=== PATIENT | female | born 1955 | race Caucasian/White ===

== ENCOUNTER 2020-07-21 11:00 | Outpatient (REF) | payer OTHER, SELFPAY ==
--- NOTE | 2020-07-21 11:05 | MM_ITS ---
EXAMINATION: MM SCREENING DIGITAL BREAST TOMOSYNTHESIS, BILATERAL CLINICAL INFORMATION: Screening. Asymptomatic. The lifetime risk of breast cancer based on the Tyrer-Cuzick Model is 8%. COMPARISON: Mammography: 04/09/2019, 08/13/2017, 01/26/2016 TECHNIQUE: Digital breast tomosynthesis is performed in both the craniocaudal and mediolateral oblique views along with computer-aided detection (CAD). Synthesized 2D images are generated from the tomosynthesis. FINDINGS: There are scattered areas of fibroglandular density (ACR BI-RADS breast composition Category b). There are no significant masses, abnormal calcifications, or other abnormalities. Scattered bilateral parenchymal asymmetries are stable. There is no developing density. The skin contours are smooth. No significant changes. MM/MM tomosynthesis screening BI IMPRESSION: No significant changes from prior studies. ASSESSMENT: BI-RADS 2: Benign RECOMMENDATION: Routine annual mammography screening. This patient's information was entered into a reminder system with a target due date for their next mammogram.
== END 2020-07-21 11:01 | disposition home or self-care (01) ==
LOC: HO.MAMMO 11:00
PROVIDERS: PCP Pediatrics; Visit Provider Pediatrics
DX: Z12.31 Encounter for screening mammogram for malignant neoplasm of breast (principal)
CPT/HCPCS: 77063; 77067

== ENCOUNTER 2021-09-01 09:18 | Outpatient (REF) | payer OTHER, SELFPAY ==
--- NOTE | ~2021-09-01 | MM_ITS ---
EXAMINATION: MM SCREENING DIGITAL BREAST TOMOSYNTHESIS, BILATERAL CLINICAL INFORMATION: Screening. Asymptomatic. The lifetime risk of breast cancer based on the Tyrer-Cuzick Model is 6%. COMPARISON: Mammography: 07/21/2020, 10/10/2018, 08/13/2017 TECHNIQUE: Digital breast tomosynthesis is performed in both the craniocaudal and mediolateral oblique views along with computer-aided detection (CAD). Synthesized 2D images are generated from the tomosynthesis. FINDINGS: There are scattered areas of fibroglandular density (ACR BI-RADS breast composition Category b). There are no significant masses, abnormal calcifications, or other abnormalities. There are bilateral scattered benign parenchymal asymmetries, stable from prior studies. No developing density. No significant changes. MM/MM tomosynthesis screening BI IMPRESSION: No mammographic evidence of malignancy. ASSESSMENT: BI-RADS 2: Benign RECOMMENDATION: Routine annual mammography screening. This patient's information was entered into a reminder system with a target due date for their next mammogram.
== END 2021-09-01 09:19 | disposition home or self-care (01) ==
LOC: HO.MAMMO 09:18
PROVIDERS: Visit Provider Obstetrics & Gynecology Gynecology
DX: Z12.31 Encounter for screening mammogram for malignant neoplasm of breast (principal)
CPT/HCPCS: 77063; 77067

== ENCOUNTER 2022-09-21 10:25 | Outpatient (REF) | payer OTHER, SELFPAY ==
--- NOTE | ~2022-09-21 | MM_ITS ---
EXAMINATION: MM SCREENING DIGITAL BREAST TOMOSYNTHESIS, BILATERAL CLINICAL INFORMATION: Screening. Asymptomatic. The lifetime risk of breast cancer based on the Tyrer-Cuzick Model is 6%. COMPARISON: Mammography: 09/01/2021, 07/21/2020, 10/10/2018 TECHNIQUE: Digital breast tomosynthesis is performed in both the craniocaudal and mediolateral oblique views along with computer-aided detection (CAD). Synthesized 2D images are generated from the tomosynthesis. Additional left CC view is provided. FINDINGS: There are scattered areas of fibroglandular density (ACR BI-RADS breast composition Category b). Parenchymal pattern is similar to prior exams and there is no developing density or interval architectural abnormality. No abnormal calcifications. Scattered bilateral parenchymal asymmetries are similar to prior studies. The axilla and skin contours are unremarkable. MM/MM tomosynthesis screening BI IMPRESSION: No mammographic evidence of malignancy. ASSESSMENT: BI-RADS 2: Benign RECOMMENDATION: Routine annual mammography screening. This patient's information was entered into a reminder system with a target due date for their next mammogram.
== END 2022-09-21 10:26 | disposition home or self-care (01) ==
LOC: HO.MAMMO 10:25
PROVIDERS: PCP Pediatrics; Visit Provider Obstetrics & Gynecology Gynecology
DX: Z12.31 Encounter for screening mammogram for malignant neoplasm of breast (principal)
CPT/HCPCS: 77063; 77067

== ENCOUNTER 2023-10-25 10:44 | Outpatient (REF) | payer OTHER, SELFPAY | END 2023-10-25 10:45 | disposition home or self-care (01) | LOC: HO.MAMMO 10:44 | PROVIDERS: PCP Pediatrics; Visit Provider Pediatrics | DX: Z12.31 Encounter for screening mammogram for malignant neoplasm of breast (principal) | CPT/HCPCS: 77063; 77067 ==

== ENCOUNTER → 2023-10-25 10:45 | Outpatient (BNV) | payer OTHER, SELFPAY | PROVIDERS: PCP Pediatrics; Visit Provider Radiology Diagnostic Radiology | DX: Z12.31 Encounter for screening mammogram for malignant neoplasm of breast (principal) | CPT/HCPCS: 77063; 77067 ==

== ENCOUNTER → 2024-11-04 07:30 | Outpatient (BNV) | payer OTHER, SELFPAY | PROVIDERS: PCP Pediatrics; Visit Provider Internal Medicine | DX: Z12.31 Encounter for screening mammogram for malignant neoplasm of breast (principal) | CPT/HCPCS: 77063; 77067 ==

== ENCOUNTER 2024-11-04 07:35 | Outpatient (REF) | payer OTHER, SELFPAY ==
--- OUTSIDE RECORDS SUMMARY | 2024-11-04 07:38 | XMS_ITS | Encounter Summary ---
Author Organization [facility], Address [address] [place] [address] Phone Care Team Providers Care Sales Broker Name Role Phone Aamir Martinez MD Primary Care Provider [phone] Encounter Details Date Type Department Care Team (Late st Contact Info) Description 06/28/2022 Orders Only [facility] [address] [place] [address] Regulo Lynn DO [address] [place] [address] Gitelman syndrome; Hypokalemia; Hypertensive disorder; Hypomagnesemia Social History Tobacco Use Types Packs/Day Years Used Date Smoking Tobacco: Never Alcohol Use Standard Drinks/Week Comments Yes 0 (1 standard drink = 0.6 oz pure alcohol) Alcoholic Drinks/day: Occasional social drink Comments Unknown Sex and Gender Information Value Date Recorded Sex Assigned at Not on file Legal Sex Female 4:36 PM EST Gender Identity Not on file Sexual Orientation Not on file documented as of this encounter Plan of Treatment Upcoming Encounters Date Type Department Care Team (Late st Contact Info) Description 12/03/2024 3:00 PM EDT Office Visit [facility] [address] [place] [address] Regulo Lynn DO [address] [facility] [place] [address] 06/03/2025 4:00 PM EDT Office Visit [facility], [address] [place] [address] Regulo Lynn, [address] [place] [address] documented as of this encounter Visit Diagnoses Diagnosis Gitelman syndrome Hypokalemia Hypertensive disorder Hypomagnesemia documented in this encounter Care Teams Sales Broker Relationship Specialty Start Date End Date Aamir Martinez MD [address] [address] PCP - General 06/29/19 documented as of this encounter
--- OUTSIDE RECORDS SUMMARY | 2024-11-04 07:38 | XMS_ITS | Encounter Summary ---
Author Organization [facility] [place], Address [address] [place] [address] Phone Care Team Providers Care Shell Core And Molding Supervisor Name Role Phone Aamir Martinez MD Primary Care Provider [phone] Encounter Details Date Type Department Care Team (Late st Contact Info) Description 05/31/2022 Orders Only [facility] [address] [place] [address] Regulo Lynn DO [address] [place] [address] Gitelman [...] [facility] [address] [place] [address] Regulo Lynn DO [address] [place] [address] 06/03/2025 4:00 PM EDT Office Visit [facility] [place], [address] [place] [address] Regulo Lynn, [address] [place] [address] documented as of this encounter Visit Diagnoses Diagnosis Gitelman syndrome Hypokalemia Hypertensive disorder Hypomagnesemia documented in this encounter Care Teams Shell Core And Molding Supervisor Relationship Specialty Start Date End Date Aamir Martinez MD [address] [address] PCP - General 06/29/19 documented as of this encounter
--- OUTSIDE RECORDS SUMMARY | 2024-11-04 07:38 | XMS_ITS | Encounter Summary ---
Author Organization [facility] [place], Address [address] [place] [address] Phone Care Team Providers Care Demolitionist Name Role Phone Aamir Martinez MD Primary Care Provider [phone] Encounter Details Date Type Department Care Team (Late st Contact Info) Description 07/26/2022 Orders Only [facility] [address] [place] [address] Regulo Lynn DO [address] [facility] [place] [address] Gitelman syndrome; Hypokalemia; Hypertensive disorder; Hypomagnesemia [...] Visit [facility] [address] [place] [address] Regulo Lynn DO [address] [facility] [place] [address] 06/03/2025 4:00 PM EDT Office Visit [facility] [place], [address] [place] [address] Regulo Lynn, [address] [place] [address] documented as of this encounter Visit Diagnoses Diagnosis Gitelman syndrome Hypokalemia Hypertensive disorder Hypomagnesemia documented in this encounter Care Teams Demolitionist Relationship Specialty Start Date End Date Aamir Martinez MD [address] [address] PCP - General 06/29/19 documented as of this encounter
--- OUTSIDE RECORDS SUMMARY | 2024-11-04 07:38 | XMS_ITS | Encounter Summary ---
Author Organization [facility] [place], Address [address] [place] [address] Phone Care Team Providers Care User Acceptance Tester Name Role Phone Aamir Martinez MD Primary Care Provider [phone] Encounter Details Date Type Department Care Team (Late st Contact Info) Description 05/24/2022 Orders Only [facility] [address] [place] [address] Regulo Lynn DO [address] [facility] [address] [facility] [place] [address] Gitelman syndrome; Hypokalemia; Hypomagnesemia; Hypertensive disorder Social History Tobacco Use Types Packs/Day Years [...] Visit [facility] [address] [place] [address] Regulo Lynn DO [address] [facility] [place] [address] 06/03/2025 4:00 PM EDT Office Visit [facility] [place], [address] [place] [address] Regulo Lynn, [address] [facility] [place] [address] documented as of this encounter Visit Diagnoses Diagnosis Gitelman syndrome Hypokalemia Hypomagnesemia Hypertensive disorder documented in this encounter Care Teams User Acceptance Tester Relationship Specialty Start Date End Date Aamir Martinez MD [address] [address] PCP - General 06/29/19 documented as of this encounter
--- OUTSIDE RECORDS SUMMARY | 2024-11-04 07:38 | XMS_ITS | Encounter Summary ---
Author Organization [facility] [place], Address [address] [place] [address] Phone Care Team Providers Care Laboratory Associate Name Role Phone Aamir Martinez MD Primary Care Provider [phone] Encounter Details Date Type Department Care Team (Late st Contact Info) Description 08/23/2022 Orders Only [facility] [address] [place] [address] Regulo Lynn DO [address] [place] [address] Gitelman syndrome; Hypokalemia; Hypertensive disorder; Hypomagnesemia [...] Visit [facility] [address] [place] [address] Regulo Lynn DO [address] [place] [address] 06/03/2025 4:00 PM EDT Office Visit [facility] [place], [address] [place] [address] Regulo Lynn, [address] [place] [address] documented as of this encounter Visit Diagnoses Diagnosis Gitelman syndrome Hypokalemia Hypertensive disorder Hypomagnesemia documented in this encounter Care Teams Laboratory Associate Relationship Specialty Start Date End Date Aaimr Martienz MD [address] [address] PCP - General 06/29/19 documented as of this encounter
--- OUTSIDE RECORDS SUMMARY | 2024-11-04 07:38 | XMS_ITS | Encounter Summary ---
Author Organization [facility] [place], Address [address] [place] [address] Phone Care Team Providers Care Dictaphone Transcriber Name Role Phone Aamir Martinez MD Primary Care Provider [phone] Encounter Details Date Type Department Care Team (Late st Contact Info) Description 05/03/2022 Orders Only [facility] [address] [place] [address] Regulo Lynn DO [address] [place] [address] Gitelman syndrome; Hypokalemia; Hypertensive disorder; Hypomagnesemia [...] Visit [facility] [address] [place] [address] Regulo Lynn DO [address] [place] [address] 06/03/2025 4:00 PM EDT Office Visit [facility] [place], [address] [place] [address] Regulo Lynn, [address] [place] [address] documented as of this encounter Visit Diagnoses Diagnosis Gitelman syndrome Hypokalemia Hypertensive disorder Hypomagnesemia documented in this encounter Care Teams Dictaphone Transcriber Relationship Specialty Start Date End Date Aamir Martinez MD [address] [phone] PCP - General 06/29/19 documented as of this encounter
--- OUTSIDE RECORDS SUMMARY | 2024-11-04 07:38 | XMS_ITS | Encounter Summary ---
Author Organization [facility] [place], Address [address] [place] [address] Phone Care Team Providers Care Manager Architecture Name Role Phone Aamir Martinez MD Primary Care Provider Encounter Details Date Type Department Care Team (Late st Contact Info) Description 09/20/2022 Orders Only [facility] [address] [place] [address] Regulo Lynn DO [address] [place] [address] Gitelman syndrome; Hypokalemia; Hypertensive disorder; Hypomagnesemia [...] Visit [facility] [address] [place] [place] [address] Regulo Lynn DO [address] [place] [address] 06/03/2025 4:00 PM EDT Office Visit [facility] [place], [address] [place] [address] Regulo Lynn, [address] [place] [address] documented as of this encounter Visit Diagnoses Diagnosis Gitelman syndrome Hypokalemia Hypertensive disorder Hypomagnesemia documented in this encounter Care Teams Manager Architecture Relationship Specialty Start Date End Date Aamir Martinez MD [address] [address] PCP - General 06/29/19 documented as of this encounter
--- OUTSIDE RECORDS SUMMARY | 2024-11-04 07:39 | XMS_ITS | Encounter Summary ---
Author Organization [facility] [place], Address [address] [place] [address] Phone Care Team Providers Care Hydrographer Name Role Phone Aamir Martinez MD Primary Care Provider [phone] Encounter Details Date Type Department Care Team (Late st Contact Info) Description 04/16/2024 Orders Only [facility] [address] [place] [address] Regulo Lynn DO [address] [facility] [place] [address] Hypomagnesemia; Hypokalemia; Hypertensive disorder; Gitelman syndrome Social History Tobacco Use Types Packs/Day Years [...] Visit [facility] [address] [place] [address] Regulo Lynn DO [address] [facility] [place] [address] 06/03/2025 4:00 PM EDT Office Visit [facility] [place], [address] [place] [address] Regulo Lynn, [address] [facility] [address] [facility] [address] [place] [address] documented as of this encounter Visit Diagnoses Diagnosis Hypomagnesemia Hypokalemia Hypertensive disorder Gitelman syndrome documented in this encounter Care Teams Hydrographer Relationship Specialty Start Date End Date Aamir Martinez MD [address] [address] PCP - General 06/29/19 documented as of this encounter
--- OUTSIDE RECORDS SUMMARY | 2024-11-04 07:39 | XMS_ITS | Encounter Summary ---
Author Organization [facility], Address [address] [place] [address] Phone Care Team Providers Care Automatic Machine Attendant Name Role Phone Aamir Martinez MD Primary Care Provider [phone] Encounter Details Date Type Department Care Team (Late st Contact Info) Description 03/28/2023 Orders Only [facility] [address] [place] [address] Regulo Lynn DO [address] [place] [address] Gitelman syndrome; Hypertensive disorder; Hypomagnesemia; Hypokalemia Social History Tobacco Use Types Packs/Day Years [...] [facility] [address] [place] [phone] Regulo Lynn DO [address] [place] [address] 06/03/2025 4:00 PM EDT Office Visit [facility], [address] [place], [place] [address] Shane Regulo, [address] [place], [place] [address] documented as of this encounter Procedures Procedure Name Priority Date/Time Associated Diagnosis Comments LYME W/REFLEX TO WESTERN BLOT Routine 04/12/2023 2:17 PM EDT SEDIMENTATION RATE, AUTOMATED Routine 04/12/2023 2:17 PM EDT MAGNESIUM Routine 04/12/2023 2:17 PM EDT Gitelman syndrome Hypertensive disorder Hypomagnesemia Hypokalemia RENAL FUNCTION PANEL Routine 04/12/2023 2:17 PM EDT Gitelman syndrome Hypertensive disorder Hypomagnesemia Hypokalemia CK TOTAL (HC) Routine 04/12/2023 2:16 PM EDT VITAMIN D 25 HYDROXY Routine 04/12/2023 2:16 PM EDT C-REACTIVE PROTEIN Routine 04/12/2023 2: 16 PM EDT TSH W/REFLEX TO FT4 Routine 04/12/2023 2 :16 PM EDT MAGNESIUM Routine 04/12/2023 2:16 PM EDT LIPID PANEL Routine 04/12/2023 2:16 PM EDT COMPREHENSIVE METABOLIC PANEL Routine 04/12/2023 2:16 PM EDT documented in this encounter Results * Lyme Disease w/reflex to Western Blot (04/12/2023 2:17 PM EDT) [facility] LYME AB SCREEN RFLX TO BLOT NEGATIVE (NEG) [facility] Comment: NO ANTIBODY TO BORRELLIA BURGDORFERI DETECTED. PATIENTS IN EARLY STAGES OF INFECTION OR WHO WERE GIVEN EARLY ANTIBIOTIC TREATMENT MAY NOT PRODUCE DETECTABLE LEVELS OF ANTIBODY. THESE PATIENTS WOULD BENEFIT FROM REPEAT TESTING IN 2 TO 4 WEEKS. Testing performed by the [employer] 2200 multiplex flow immunoassay system Testing performed or reported by [facility], a Service of [facility], [address] [place] [address] [place] [address] Dixon Sim MD, Host/Hostess CLIA# [id number] 04/12/2023 2:17 PM EDT 04/12/2023 2:19 PM EDT [facility] External Provider LAB BLOOD ORDERABLES Final Result Performing Organization Address [facility] Co de Phone Number [facility] * (ABNORMAL) Sedimentation Rate (04/12/2023 2:17 PM EDT) [facility] Sed Rate 33(H) (0-20) MM/HR [facility] Comment: Testing performed or reported by [facility], a Service of [facility], [address] [place] [id number] Dixon Sim MD, Host/Hostess CLIA# [id number] 04/12/2023 2:17 PM EDT 04/12/2023 2:19 PM EDT [facility] External Provider LAB BLOOD ORDERABLES Final Result Performing Organization Address [facility] [[email or web address]] de Phone Number [facility] * (ABNORMAL) Magnesium (04/12/2023 2:17 PM EDT) [facility] Magnesium 1.2(L) (1.6-2.3) mg/dL [facility] Comment: Testing performed or reported by [facility], a Service of [facility], [address] [place] [id number] Dixon Sim MD, Host/Hostess CLIA# [id number] Blood (Blood, Venous) 04/12/2023 2:17 PM EDT 04/12/2023 2:19 PM EDT Regulo Lynn LAB BLOOD ORDERABLES Final Resu lt Performing Organization Address City/[facility]/ZIP Co de Phone Number [facility] * (ABNORMAL) Renal Function Panel (04/12/2023 2:17 PM EDT) Glucose 86 (70-99) MG/DL [facility] BUN 16 (8-23) MG/DL [facility] Creatinine 0.8 (0.5-1.0) MG/DL [facility] Sodium 138 (133-145) MMOL/L [facility] Potassium 3.3(L) (3.6-5.2) MMOL/L [facility] Chloride 97(L) (98-107) MMOL/L [facility] Bicarbonate (CO2) 27 (22-29) MMOL/L [facility] Anion Gap 14 (4-17) [facility] Albumin 4.2 (3.4-4.8) GM/DL [facility] Calcium 9.7 (8.6-10.5) MG/DL [facility] Phosphorus, Serum 3.3 (2.5-4.5) MG/DL [facility] Est GFR Non 84 ML/MIN/1.7 3 M2 [facility] Comment: Creatinine based estimated glomerular filtration (eGFR) in adults is calculated using the National Kidney Foundation recommended 2020 CKD-EPI equation. Estimates GFR from serum creatinine, age and sex. Testing performed or reported by [facility], a Service of [address] [address] Dixon Sim MD, Host/Hostess [facility]# [id number] Blood (Blood, Venous) 04/12/2023 2:17 PM EDT 04/12/2023 2:19 PM EDT Regulo Lynn LAB BLOOD ORDERABLES Final Resu lt Performing Organization Address City/[facility]/ZIP Co de Phone Number [facility] * (ABNORMAL) C-Reactive Protein (04/12/2023 2:16 PM EDT) CRP 2.0(H) (0-0.5) MG/DL [facility] Comment: Testing performed or reported by [facility], a Service of [address] [address] Dixon Sim MD, Host/Hostess CLIA# [id number] 04/12/2023 2:16 PM EDT 04/12/2023 2:19 PM EDT [facility] External Provider LAB BLOOD ORDERABLES Final Result Performing Organization Address City/[facility]/ZIP Nj de Phone Number [facility] * (ABNORMAL) Vitamin D 25 Hydroxy (04/12/2023 2:16 PM EDT) Pathologist [facility] Vitamin D, 25-Hydroxy 68.2(H) (20-50) NG/ML [facility] Comment: Testing performed or reported by [facility], a Service of [address] [address] Dixon Sim MD, Host/Hostess LANDRYIA# [id number] 04/12/2023 2:16 PM EDT 04/12/2023 2:19 PM EDT [facility] External Provider LAB BLOOD ORDERABLES Final Result Performing Organization Address [facility] [[email or web address]] de Phone Number [facility] * TSH w/reflex to FT4 (04/12/2023 2:16 PM EDT) [facility] TSH 2.78 (0.4-4.2) uIU/mL [facility] Comment: Testing performed or reported by [facility], a Service of [address] [address] Dixon Sim MD, Host/Hostess CLIA# [id number] 04/12/2023 2:16 PM EDT 04/12/2023 2:19 PM EDT [facility]ps External Provider LAB BLOOD ORDERABLES Final Result Performing Organization Address [facility] [[email or web address]] de Phone Number [facility] * CK Total (04/12/2023 2:16 PM EDT) Pathologist [facility] Creatine Kinase (CK/CPK) 51 (0-190) U/L [facility] Comment: Testing performed or reported by [facility], a Service of [address] [address] Dixon Sim MD, Host/Hostess DEAN# [id number] 04/12/2023 2:16 PM EDT 04/12/2023 2:19 PM EDT [facility] External Provider LAB HISTORICAL-CONVERSIONS -UNSOLICITED RESULTS Final Result Performing Organization Address [facility] [[email or web address]] de Phone Number [facility] * (ABNORMAL) Magnesium (04/12/2023 2:16 PM EDT) Pathologist [facility] Magnesium 1.2(L) (1.6-2.3) mg/dL [facility] Comment: Testing performed or reported by [facility], a Service of [address] [address] Dixon Sim MD, Host/Hostess DEAN# [id number] 04/12/2023 2:16 PM EDT 04/12/2023 2:19 PM EDT [facility] External Provider LAB BLOOD ORDERABLES Final Result Performing Organization Address [facility] de Phone Number [facility] * Lipid panel (04/12/2023 2:16 PM EDT) Cholesterol, Total 177 (<200) MG/DL [facility] Triglycerides 53 (<150) MG/DL [facility] HDL 64 (>39) MG/DL [facility] LDL Calculated 102 (0-130) MG/DL [facility] Non HDL Cholesterol 113 (<160) MG/DL [facility] Comment: Testing performed or reported by [facility], a Service of [address] [address] Dixon Sim MD, Host/Hostess LANDRYIA# [id number] 04/12/2023 2:16 PM EDT 04/12/2023 2:19 PM EDT [facility] External Provider LAB BLOOD ORDERABLES Final Result Performing Organization Address [facility]/ZIP Co de Phone Number [facility] * (ABNORMAL) Comprehensive Metabolic Panel (04/12/2023 2:16 PM EDT) Glucose 86 (70-99) MG/DL [facility] BUN 16 (8-23) MG/DL [facility] Creatinine 0.8 (0.5-1.0) MG/DL [facility] Sodium 137 (133-145) MMOL/L [facility] Potassium 3.3(L) (3.6-5.2) MMOL/L [facility] Chloride 97(L) (98-107) MMOL/L [facility] Bicarbonate (CO2) 27 (22-29) MMOL/L [facility] Anion Gap 13 (4-17) [facility] Albumin 4.2 (3.4-4.8) GM/DL [facility] Calcium 9.7 (8.6-10.5) MG/DL [facility] Total Bilirubin 0.8 (0-1.2) MG/DL [facility] Protein, Total 7.3 (6.2-8.2) GM/DL [facility] A/G Ratio 1.4 [facility] AST (SGOT) 29 (0-32) U/L [facility] Alkaline Phosphatase 177(H) (35-104) U/L [facility] ALT (SGPT) 37(H) (0-33) U/L [facility] Est GFR Non 82 ML/MIN/1.7 3 M2 [facility] Comment: Creatinine based estimated glomerular filtration (eGFR) in adults is calculated using the National Kidney Foundation recommended 2020 CKD-EPI equation. Estimates GFR from serum creatinine, age and sex. Testing performed or reported by [facility], a Service of [facility], [address] [place] [id number] Dixon Sim MD, Host/Hostess [facility]# [id number] 04/12/2023 2:16 PM EDT 04/12/2023 2:19 PM EDT us Aps External Provider LAB BLOOD ORDERABLES Final Result [facility] documented in this encounter Visit Diagnoses Diagnosis Gitelman syndrome Hypertensive disorder Hypomagnesemia Hypokalemia documented in this encounter Care Teams Automatic Machine Attendant Relationship Specialty Start Date End Date Aamir Martinez MD [address] [address] PCP - General 06/29/19 documented as of this encounter
--- OUTSIDE RECORDS SUMMARY | 2024-11-04 07:39 | XMS_ITS | Encounter Summary ---
Author Organization [facility], Address [address] [place] [address] Phone Care Team Providers Care Supercalender Operator Helper Name Role Phone Aamir Martinez MD Primary Care Provider [phone] Encounter Details Date Type Department Care Team (Late st Contact Info) Description 12/13/2022 Orders Only [facility] [address] [place] [address] Regulo Lynn DO [address] [place] [address] Gitelman syndrome; Hypokalemia; Hypertensive disorder; Hypomagnesemia [...] Visit [facility] [address] [place] [phone] Regulo Lynn DO [address] [place] [address] 06/03/2025 4:00 PM EDT Office Visit [facility], [address] [place] [phone] Regulo Lynn, [address] [place] [phone] documented as of this encounter Visit Diagnoses Diagnosis Gitelman syndrome Hypokalemia Hypertensive disorder Hypomagnesemia documented in this encounter Care Teams Supercalender Operator Helper Relationship Specialty Start Date End Date Aamir Martinez MD [address] [phone] PCP - General 06/29/19 documented as of this encounter
--- OUTSIDE RECORDS SUMMARY | 2024-11-04 07:39 | XMS_ITS ---
Author Organization [facility] Address [address] [place] [id number] Care Team Providers Care Systems Auditor Name Role Phone PATRICIA OVALLE, SARAH Primary Care Provider Unavail able Nancy Coker Unavailable [phone] Allergies Allergen (clinical drug ingredient) Drug/Non Drug Allergy documented on EMR Reaction Allergy Type Onset Date Status Penicillin Unknown Drug Allergy Active Substance with sulfonamide structure and antibacterial mechanism of action (substance) Sulfa Antibiotics Unknown Drug Allergy Active Results Component Value Reference Range Notes Urinalysis (Not yet reviewed by provider) Interpretation: Performing Lab: Notes/Report: PH 7.0 PROTEIN NEG GLUCOSE NEG BLOOD NEG REASON FOR VISIT Annual 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 Physical, Annual 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 Physical 60-85+ Medications Medication SIG (Take, Route, Frequency, Duration) Notes Start Date End Date Status Spironolactone 25 MG 1 tablet Orally Active Multi-Vitamin Daily - 1 tablet Orally On ce a day Active LORazepam 0.5 MG 1 tablet as needed Orally Active Yuvafem 10 MCG _insert 1 TABLET INTRAVAGINALLY TWICE A WEEK FOR 90 DAYS for 84 Active Yuvafem 10 MCG 1 tablet Vaginal TWI CE A WEEK for 90 days 06/21/2022 Active Vitamin D3 5000 UNIT 1 capsule Orally On ce a day Active Vitamin C 500 MG Orally Act jp aMILoride HCl 5 MG 2 tablet Orally Once a day Active Klor-Con 20 MEQ 1 packet Orally Twic e a day Not-Taking Alosetron HCl 1 MG TAKE 1 TABLET TWICE DAILY Oral for 90 Active Slow-Mag 71.5-119 MG 2 tablets Orally On ce a day for 30 day(s) Active Yuvafem 10 MCG 1 tablet Vaginal TWI CE A WEEK for 90 days 10/31/2023 Active Levothyroxine Sodium 88 MCG 1 tablet Orally Once a day Active Trini Allergy 180 MG 1 tablet Orally O nce a day Active Losartan Potassium 50 MG 1 tablet Orally Once a day Active Social History Tobacco Use: Social History Observation Description Date Details (start date - stop date) Never Smoker NA - NA Tobacco Use/Smoking Question Answer Notes Are you a nonsmoker Alcohol Screen (Audit-C) Question Answer Notes Did you have a drink contain ing alcohol in the past year? Yes How often did you have a dri nk containing alcohol in the past year? 2 to 4 times a month (2 points) How many drinks did you have on a typical day when you were drinking in the past year? 1 or 2 drinks (0 point) Points 2 Interpretation Negative Vital Signs Temperature 97.3 degrees Fahrenheit 10/31/19 24 Blood pressure systolic 114 mm Hg 10/31/19 24 Blood pressure diastolic 74 mm Hg 024 Height 65.5 in 10/31/2023 Weight 200 lbs 10/31/2023 BMI 32.77 kg/m2 10/31/2023 Encounters Encounter Location Date Provider Diagnosis [address] [id number] 10/31/2023 Nancy Coker Encounter for gynecological examination (general) (routine) without abnormal findings Z01.419 ; Encounter for screening mammogram for malignant neoplasm of breast Z12.31 ; Encounter for screening for osteoporosis Z13.820 ; Other primary ovarian failure E28.39 and Postmenopausal atrophic vaginitis N95.2 Assessments Encounter Date Diagnosis (ICD Code) Assessment Notes Treatment Notes Treatment Clinical Notes Section Notes 10/31/2023 Encounter for gynecological examination (general) (routine) without abnormal findings (ICD-10 - Z01.419) PAP TEST WITH HPV TYPING WAS OBTAINED. 10/31/2023 Encounter for screening mammogram for malignant neoplasm of breast (ICD-10 - Z12.31) REGULAR MAMMOGRAMS AND SBE'S WERE RECOMMENDED. 10/31/2023 Encounter for screening for osteoporosis (ICD-10 - Z13.820) BONE DENSITY WAS ORDERED. 10/31/2023 Other primary ovarian failure (ICD-10 - E28.39) PAT WAS ON HRT UNTIL AGE 52. 10/31/2023 Postmenopausal atrophic vaginitis (ICD-10 - N95.2) CONITNUE YUVAFEM. Plan Of Treatment Medication Medication Name Sig Start Date Stop Date Notes Yuvafem 10 MCG 1 tablet Vaginal TWICE A WEEK for 90 days 0 10/31/2023 Treatment Notes Assessment Notes Encounter for gynecological examination (general) (routine) without abnormal findings PAP TEST WITH HPV TYPING WAS OBTAINED. Encounter for screening mamm ogram for malignant neoplasm of breast REGULAR MAMMOGRAMS AND SBE'S WERE RECOMMENDED. Encounter for screening for osteoporosis BONE DENSITY WAS ORDERED. Other primary ovarian failure PAT WAS ON HRT UNTIL AGE 52. Postmenopausal atrophic vaginitis CONITN UE YUVAFEM. Pending Test Test Name Order Date MAMMOGRAM, SCREENING 10/31/2023 Urinalysis 10/31/2023 THIN PREP,HPV,GRACIE IF HPV+ (>29YR)(DIAG) 10/31/2023 BONE DENSITY 10/31/2023 MM Digital Mammo Screening 10/31/2023 Next Appt Details Follow Up: 1 Year, Reason: Provider Name:Nancy augustine, 11/05/2024 10:40:00 AM, [employer], [address], [place], [address], Progress Notes * NYLA TIERNEYDOB:[birth year] (68 yo F)Acc No.[id number]:10/31/2023 PROGRESS NOTES Patient:?NIALL NYLA Appointment Provider:?Nancy augustine M.D. :1955???Age:68 Y???Sex:Female D ate:10/31/2023 Address:[address] [place], [place] [id number] Pcp:SARAH GOMEZ MD Subjective: * Chief Complaints: * ???Annual 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 PhysicalAnnual 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 Physical 60-85+ * HPI: ???New/Follow-up Patient Consult:? JOSE GUADALUPE SUFFERED FROM PREMATURE OVARIAN FAILURE AT AGE 24. SHE WAS ON HRT UNTIL AGE 52. SHE IS DOING WELL AND USES YUVAFEM FOR ATROPHIC VAGINITIS. THIS HAS HELPED DECREASE DYSPAREUNIA. ?HER MAMMOGRAM DONE IN AUG 2021 SHOWED BREASTS ARE NOT DENSE AND WAS NORMAL. SHE HAD ANOTHER MAMMOGRAM THIS SEP 2023. WE DO NOT HAVE THE RESULTS YET. ?HER LAST PAP TEST IN 2020 WAS NEGATIVE AND HPV NEGATIVE. ?HER LAST BMD IN 2015 WAS NORMAL. ?SHE HAD A COLONOSCOPY DONE IN 2020. ?PFIZER X 2. ???Annual:? Patient presents for annual exam, ages 60-85, postmenopausal. ?General Health Maintenance:?Current breast complaints:?no breast pain, mass, discharge, or skin changes ?Urinary problems:?patient reports no urinary health problems or bowel health problems ?Calcium intake:?takes adequate calcium via diet and supplementation ?Significant 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 problems:?no significant software tools developer symptoms or problems * ROS:?general:?no?chest pain.?no?palpitations.?no?headache.?no?cough.?no?shortness of breath.?no?fever.?no?unexplained weight loss.?no?nausea/vomiting.?no?change in bowel movements.?no blood in stool.?no?genitourinary complaints.?no?skin complaints.? * Medical History:? 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 Control:?None.?Colonoscopy?2009.?Bone Density:?01/26/16.? * OB History:?Total pregnancies?0.? * Surgical History:?Breast Lum pectomy 1987Laparoscopy 1979Colonoscopy 2009 * Hospitalization/Major Diagno stic Procedure:?See Surgical Hx * Family History:?Mother: dece ased 92 yrs, Osteoporosis, diagnosed with Unspecified essential hypertension.?Father: 65 yrs, diagnosed with Unspecified heart disease.? No Family Hx of Breast, Ovarian or Colon Cancer. * Social History:?Tobacco Use:?Tobacco Use/Smoking?Are you a?nonsmoker ???Sexual History:?Sexual History?Had sex in the past 12 months (vaginal, oral, or anal)?: Yes, with: Men only, Prevention strategies discussed:: Other.?Details of Sexual History?Are you sexually active??Yes ???Drugs/Alcohol:?Drugs?Have you used drugs other than those for medical reasons in the past 12 months??No ?Alcohol Screen (Audit-C)?Did you have a drink containing alcohol in the past year??Yes ?How often did you have a drink containing alcohol in the past year??2 to 4 times a month (2 points) ?How many drinks did you have on a typical day when you were drinking in the past year??1 or 2 drinks (0 point) ?Points?2 ?Interpretation?Negative ???Miscellaneous:?no Children. ?no Domestic violence. ?Exercise: yes. ?Home smoke detector use: yes. ?Living with: spouse. ?Marital status: . ?Natural support system: yes. ?Occupation: Works full-time. ?no Sexual abuse. ?Sexually active: yes, monogamous relationship. ?no Verbal abuse. * Medications:?TakingSpironola ctone 25 MG Tablet 1 tablet Orally Slow-Mag 71.5-119 MG Tablet Delayed Release 2 tablets Orally Once a dayAllegra Allergy 180 MG Tablet 1 tablet Orally Once a dayLevothyroxine Sodium 88 MCG Tablet 1 tablet Orally Once a dayLosartan Potassium 50 MG Tablet 1 tablet Orally Once a dayaMILoride HCl 5 MG Tablet 2 tablet Orally Once a dayAlosetron HCl 1 MG Tablet TAKE 1 TABLET TWICE DAILY Oral Vitamin C 500 MG Capsule Orally Vitamin D3 5000 UNIT Capsule 1 capsule Orally Once a dayLORazepam 0.5 MG Tablet 1 tablet as needed Orally Multi-Vitamin Daily - Tablet 1 tablet Orally Once a dayYuvafem 10 MCG Tablet _insert 1 TABLET INTRAVAGINALLY TWICE A WEEK FOR 90 DAYS Yuvafem 10 MCG Tablet 1 tablet Vaginal TWICE A WEEKTaking Spironolactone 25 MG Tablet 1 tablet Orally Taking Slow-Mag 71.5- 119 MG Tablet Delayed Release 2 tablets Orally Once a dayTaking Trini Allergy 180 MG Tablet 1 tablet Orally Once a dayTaking Levothyroxine Sodium 88 MCG Tablet 1 tablet Orally Once a dayTaking Losartan Potassium 50 MG Tablet 1 tablet Orally Once a dayTaking aMILoride HCl 5 MG Tablet 2 tablet Orally Once a dayTaking Alosetron HCl 1 MG Tablet TAKE 1 TABLET TWICE DAILY Oral Taking Vitamin C 500 MG Capsule Orally Taking Vitamin D3 5000 UNIT Capsule 1 capsule Orally Once a dayTaking LORazepam 0.5 MG Tablet 1 tablet as needed Orally Taking Multi-Vitamin Daily - Tablet 1 tablet Orally Once a dayTaking Yuvafem 10 MCG Tablet _insert 1 TABLET INTRAVAGINALLY TWICE A WEEK FOR 90 DAYS Taking Yuvafem 10 MCG Tablet 1 tablet Vaginal TWICE A LKFRAzp-LdadntPbwk-Ldu 20 MEQ Packet 1 packet Orally Twice a dayMedication List reviewed and reconciled with the patientNot-Taking Klor-Con 20 MEQ Packet 1 packet Orally Twice a dayMedication List reviewed and reconciled with the patient * Allergies:?Penicillin: Aller gySulfa Antibiotics: Allergyno[Allergies Verified] Objective: * Vitals:?Ht: 65.5 in, Wt: 200 lbs, BMI:32.77 Index, BP: 114/74 mm Hg, Temp: 97.3 F. * Examination: ???General Exam: ?CONSTITUTIONAL:?General Appearance:?alert, in no acute distress, normal, well nourished ?NECK/THYROID:?Inspection/Palpation:?normal ?Thyroid:?normal size and shape ?RESPIRATORY:?Auscultation: clear to auscultation bilaterally, Respiratory Effort: normal.?CARDIOVASCULAR:?Auscultation: regular rate and rhythm.?BREAST, Right:?Inspection/Palpation:?no discharge, no masses present, no nipple retraction, no skin changes, no skin dimpling, no tenderness, no lymphadenopathy, no axillary mass, no axillary tenderness ?BREAST, Left:?Inspection/Palpation:?no discharge, no masses present, no nipple retraction, no skin changes, no skin dimpling, no tenderness, no lymphadenopathy, no axillary mass, no axillary tenderness ?GASTROINTESTINAL:?Abdomen:?no masses, nontender, nondistended ?Liver and Spleen:?normal ?Hernias:?no hernias present, no inguinal adenopathy ?MUSCULOSKELETAL:?Inspection/Palpation:?no clubbing, cyanosis, or edema ?SKIN:?Skin:?normal ?NEURO/PSYCH:?Orientation:?time , place, person ?Mood/Affect:?normal?Genitourinary: ?EXTERNAL GENITALIA:?External Genitalia:?normal, no lesions ?VAGINA:?Vagina:?normal appearance, no abnormal discharge, no lesions ?BLADDER:?Bladder:?no mass, nontender ?URETHRA:?Urethra:?no erythema or lesions present ?CERVIX:?Cervix:?no lesions, nontender ?UTERUS:?Uterus:?nontender, normal contour, normal mobility, normal size ?ADNEXA:?Adnexa:?no masses, no tenderness ?ANUS AND PERINEUM:?Anus/Perineum:?visually normal??? Assessment: * Assessment: 1.?Encounter for gynecologic al examination (general) (routine) without abnormal findings - Z01.419?2.?Encounter for screening mammogram for malignant neoplasm of breast - Z12.31?3.?Encounter for screening for osteoporosis - Z13.820?4.?Other primary ovarian failure - E28.39?5.?Postmenopausal atrophic vaginitis - N95.2? Plan: * Treatment: ?LAB: Urinalysis* ? Value Reference Range ?PH 7.0 * ?PROTEIN NEG * ?GLUCOSE NEG * ?BLOOD NEG Notes: PAP TEST WITH HPV TYPING WAS OBTAINED.??2.?Encounter for screening mammogram for malignant neoplasm of breast?Imaging: MM Digital Mammo Screening Notes: REGULAR MAMMOGRAMS AND SBE'S WERE RECOMMENDED.??3.?Encounter for screening for osteoporosis?Imaging: BONE DENSITY* POST MENOPAUSAL Z78.0 Notes: BONE DENSITY WAS ORDERED.??4.?Other primary ovarian failure? Notes: PAT WAS ON HRT UNTIL AGE 52.??5.?Postmenopausal atrophic vaginitis? Start Yuvafem Tablet, 10 MCG, 1 tablet, Vaginal, TWICE A WEEK, 90 days, 24 Tablet, Refills 4.? Notes: CONITNUE YUVAFEM.?? * Imaging:? * ?Imaging: MAMMOGRAM, SCR EENING * Procedure Codes:? * Preventive Medicine:? ??YOUR PREVENTIVE WELLNESS PLAN:?Osteoporosis prevention?Calcium, D, strength training.?Breast Cancer Screening (Mammogram):?annually.?Cervical Cancer Screening (Pap Smear):?q 3 years with HPV screen.?Colorectal Cancer Screening:?q 10 years.? * Follow Up:?1 Year * Images: Billing Information: * Visit Code:? 69102 Preventive Care Est Pt. Age 65 and over. * Procedure Codes:? * Sign off status: Completed true * Appointment Provider:?Nancy Coker M.D. Date:?10/31/2023 Generated for Angela jean-baptiste/Carl/eTransmitting on:?11/04/2024 07:38 AM EDT History and Physical Notes * HPI (History of Present Illness) Category Sub-Category Detail Notes Category Not es New/Follow-up Patient Consult PAT SUFFERED FROM PREMATURE OVARIAN FAILURE AT AGE 24. SHE WAS ON HRT UNTIL AGE 52. SHE IS DOING WELL AND USES YUVAFEM FOR ATROPHIC VAGINITIS. THIS HAS HELPED DECREASE DYSPAREUNIA. HER MAMMOGRAM DONE IN AUG 2021 SHOWED BREASTS ARE NOT DENSE AND WAS NORMAL. SHE HAD ANOTHER MAMMOGRAM THIS SEP 2023. WE DO NOT HAVE THE RESULTS YET. HER LAST PAP TEST IN 2020 WAS NEGATIVE AND HPV NEGATIVE. HER LAST BMD IN 2015 WAS NORMAL. SHE HAD A COLONOSCOPY DONE IN 2020. PFIZER X 2. Annual General Health Maintenance: Current breast complaints:: no breast pain, mass, discharge, or skin changes Urinary problems:: patient r eports no urinary health problems or bowel health problems Calcium intake:: takes adequ ate calcium via diet and supplementation Significant 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 problems:: n o significant software tools developer symptoms or problems Examination Category Sub-Category Detail Notes Category Not es General Exam CONSTITUTIONAL: General Appearan ce:: alert, in no acute distress, normal, well nourished NECK/THYROID: Thyroid:: normal size and shape Inspection/Palpation:: normal RESPIRATORY: Auscultation: clear to auscultation bilaterally, Respiratory Effort: normal CARDIOVASCULAR: Auscultation: regula r rate and rhythm GASTROINTESTINAL: Hernias:: no hernias present, no inguinal adenopathy Liver and Spleen:: normal Abdomen:: no masses, nontender, nondiste nded MUSCULOSKELETAL: Inspection/Palpation:: no clubb ing, cyanosis, or edema SKIN: Skin:: normal NEURO/PSYCH: Mood/Affect:: normal Orientation:: time , place, person BREAST, Right: Inspection/Palpation :: no discharge, no masses present, no nipple retraction, no skin changes, no skin dimpling, no tenderness, no lymphadenopathy, no axillary mass, no axillary tenderness BREAST, Left: Inspection/Palpation :: no discharge, no masses present, no nipple retraction, no skin changes, no skin dimpling, no tenderness, no lymphadenopathy, no axillary mass, no axillary tenderness Genitourinary EXTERNAL GENITALIA: External Genitalia:: nor mal, no lesions VAGINA: Vagina:: normal appearance, no a bnormal discharge, no lesions BLADDER: Bladder:: no mass, nontender URETHRA: Urethra:: no erythema or lesions present CERVIX: Cervix:: no lesions, nontender UTERUS: Uterus:: nontender, normal conto ur, normal mobility, normal size ADNEXA: Adnexa:: no masses, no tendernes s ANUS AND PERINEUM: Anus/Perineum:: visually norm al
--- OUTSIDE RECORDS SUMMARY | 2024-11-04 07:39 | XMS_ITS ---
Author Organization [employer] [facility] Address [address] [facility] [address] [place] [address] Care Team Providers Care Rehabilitation Services Counselor Name Role Phone PATRICIA OVALLE, SARAH Primary Care Provider Unavail able Nancy Coker Unavailable [phone] Allergies Allergen (clinical drug ingredient) Drug/Non Drug Allergy documented on EMR Reaction Allergy Type Onset Date Status Penicillin Unknown Drug Allergy Active Substance with sulfonamide structure and antibacterial mechanism of action (substance) Sulfa Antibiotics Unknown Drug Allergy Active Results Component Value Reference Range Notes [id number] IGP No Culture 30 Plus Reviewed date:11/27/2023 11:17:58 AM Interpretation: Performing Lab:[facility] [place] [facility], [address], Phone - [phone], Director - [facility] Notes/Report: Clinical Information:VAGINAL/CERVICAL:LMP>LIVIER [id number] Dates / Results....06/15/21 NEGHPV No. of containers..01 ThinPrep Vial DIAGNOSIS: NEGATIVE FOR INTRAEPITHELIAL LESION OR MALIGNANCY. THIS SPECIMEN WAS RESCREENED PART OF OUR [facility] ATTENDANT PROGRAM. Specimen adequacy: Satisfactory for evaluation. Endocervical and/or squamous metaplastic cells (endocervical component) are present. Clinician provided ICD10: Z0 1.419 Performed by: Regulo Evans , Chief Passenger Ship Steward/Stewardess (ASCP) QC reviewed by: Annalee nicholas, Chief Passenger Ship Steward/Stewardess (ASCP) . . Note: The Pap smear is a screening test designed to aid in the detection of premalignant and malignant conditions of the uterine cervix. It is not a diagnostic procedure and should not be used as the sole means of detecting cervical cancer. Both false-positive and false-negative reports do occur. . Test Methodology: This liquid based ThinPrep(R) pap test was screened with the use of an image guided system. HPV Aptima Negative Negative This nucleic acid amplification test detects fourteen high-risk HPV types (16,18,31,33,35,39,45,51,52,56,58 ,59,66,68) without differentiation. HPV Genotype Reflex Criteria not met, HPV Genotype not performed. PDF Report Reviewed date:11/27/2023 11:17:42 AM Interpretation: Performing Lab:[facility] [place] [facility], [address] [facility] [address], [place], Phone - [phone], Director - [facility] Notes/Report: Clinical Information:VAGINAL/CERVICAL:LMP>LIVIER [id number] Dates / Results....06/15/21 NEGHPV No. of containers..01 ThinPrep Vial REASON FOR VISIT REPEAT PAP DUE TO LABELING ERROR Medications Medication SIG (Take, Route, Frequency, Duration) Notes Start Date End Date Status LORazepam 0.5 MG 1 tablet as needed Orally Active Multi-Vitamin Daily - 1 tablet Orally On ce a day Active Vitamin C 500 MG Orally Act jp Vitamin D3 5000 UNIT 1 capsule Orally On ce a day Active Klor-Con 20 MEQ 1 packet Orally Twic e a day Not-Taking Trini Allergy 180 MG 1 tablet Orally O nce a day Active Alosetron HCl 1 MG TAKE 1 TABLET TWICE DAILY Oral for 90 Active Losartan Potassium 50 MG 1 tablet Orally Once a day Active aMILoride HCl 5 MG 2 tablet Orally Once a day Active Levothyroxine Sodium 88 MCG 1 tablet Orally Once a day Active Slow-Mag 71.5-119 MG 2 tablets Orally On ce a day for 30 day(s) Active Yuvafem 10 MCG _insert 1 TABLET INTRAVAGINALLY TWICE A WEEK FOR 90 DAYS for 84 Active Spironolactone 25 MG 1 tablet Orally Active Yuvafem 10 MCG 1 tablet Vaginal TWI CE A WEEK for 90 days 06/21/2022 Active Yuvafem 10 MCG 1 tablet Vaginal TWI CE A WEEK for 90 days 10/31/2023 Active Vital Signs Temperature 97.9 degrees Fahrenheit 11/21/19 24 Blood pressure systolic 120 mm Hg 11/21/19 24 Blood pressure diastolic 76 mm Hg 024 Height 65.5 in 11/21/2023 Weight 200 lbs 11/21/2023 BMI 32.77 kg/m2 11/21/2023 Encounters Encounter Location Date Provider Diagnosis [facility] [address] [place] [address] 11/21/2023 Nancy Wyattva Encounter for screening for osteoporosis Z13.820 and Unsatisfactory cytologic smear of cervix R87.615 Assessments Encounter Date Diagnosis (ICD Code) Assessment Notes Treatment Notes Treatment Clinical Notes Section Notes 11/21/2023 Encounter for screening for osteoporosis (ICD-10 - Z13.820) BONE DENSITY WAS ORDERED. 11/21/2023 Unsatisfactory cytologic smear of cervix (ICD-10 - R87.615) PAP TEST WITH HPV TYPING WAS OBTAINED. Plan Of Treatment Treatment Notes Assessment Notes Encounter for screening for osteoporosis BONE DENSITY WAS ORDERED. Unsatisfactory cytologic smear of cervix PAP TEST WITH HPV TYPING WAS OBTAINED. Pending Test Test Name Order Date BONE DENSITY 11/21/2023 Next Appt Details Follow Up: 1 Year, Reason: Provider Name:Nancy augustine, 11/05/2024 10:40:00 AM, [address], [place], [address], Progress Notes * NYLA TIERNEYDOB:[birth year] (68 yo F)Acc No.[id number]:11/21/2023 PROGRESS NOTES Patient:?NYLA TIERNEY Appointment Provider:?Nancy augustine M.D. :1955???Age:68 Y???Sex:Female D ate:11/21/2023 Address:[address] [place], [place] [id number] Pcp:SARAH GOMEZ MD Subjective: * Chief Complaints: * ???REPEAT PAP DUE TO LABELIN G ERROR * HPI: ???New/Follow-up Patient Consult:? PAT IS HERE FOR A REPEAT PAP TEST. DUE TO CHANGE IN LABORATORIES, THERE WAS AN UNANTICIPATED MIX UP. ?PAT'S LAST BMD WAS IN 2015. SHE IS REQUESTING BMD ORDER THIS YEAR SEPARATE FROM HER MAMMOGRAM. * ROS:?general:?no?chest pain.?no?palpitations.?no?headache.?no?cough.?no?shortness of breath.?no?fever.?no?unexplained weight loss.?no?nausea/vomiting.?no?change in bowel movements.?no blood in stool.?no?genitourinary complaints.?no?skin complaints.? * Medical History:? 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 Control:?None.?Colonoscopy?2009.?Bone Density:?01/26/16.? * OB History:?Total pregnancies?0.? * Medications:?TakingSpironola ctone 25 MG Tablet 1 [...] MCG Tablet 1 tablet Vaginal TWICE A WEEKYuvafem 10 MCG Tablet 1 tablet Vaginal TWICE A WEEKTaking Spironolactone 25 MG Tablet 1 tablet Orally Taking Slow-Mag 71.5-119 MG Tablet Delayed Release 2 [...] Tablet 1 tablet Vaginal TWICE A WEEKTaking Yuvafem 10 MCG Tablet 1 tablet Vaginal TWICE A YMGGSud-ObgqbnZfto-Wqw 20 MEQ Packet 1 packet Orally Twice a dayNot- Taking Klor-Con 20 MEQ Packet 1 packet Orally Twice a day * Allergies:?Penicillin: Aller gySulfa Antibiotics: Allergy Objective: * Vitals:?Ht: 65.5 in, Wt: 200 lbs, BMI:32.77 Index, BP: 120/76 mm Hg, Temp: 97.9 F. * Examination: ???Gynecological: ?EXTERNAL GENITALIA:?Normal female. No lesions, erythema or discharge.?VAGINA:?pink soto. No discharge or lesions. No cystocele or rectocele.?CERVIX:?No cervical motion tenderness, discharge or lesions.?UTERUS:? normal size, shape and consistency, normal mobility, nontender.?ADNEXA:?no masses or tenderness bilaterally.? Assessment: * Assessment: 1.?Unsatisfactory cytologic smear of cervix - R87.615 (Primary)?2.?Encounter for screening for osteoporosis - Z13.820? Plan: * Treatment: 2.?Encounter for screening f or osteoporosis?Imaging: BONE DENSITY Notes: BONE DENSITY WAS ORDERED.?? * Labs:? * ?Lab: [id number] IGP No Culture 30 Plus * Procedure Codes:? * Follow Up:?1 Year * Images: Billing Information: * Visit Code:? * Procedure Codes:? * Sign off status: Completed true * Appointment Provider:?Nancy Coker M.D. Date:?11/21/2023 Generated for Angela jean-baptiste/Carl/eTransmitting on:?11/04/2024 07:39 AM EDT History and Physical Notes * HPI (History of Present Illness) Category Sub-Category Detail Notes Category Not es New/Follow-up Patient Consult PAT IS HERE FOR A REPEAT PAP TEST. DUE TO CHANGE IN LABORATORIES, THERE WAS AN UNANTICIPATED MIX UP. PAT'S LAST BMD WAS IN 2016. SHE IS REQUESTING BMD ORDER THIS YEAR SEPARATE FROM HER MAMMOGRAM. Examination Category Sub-Category Detail Notes Category Not es Gynecological CERVIX: No cervical ginna on tenderness, discharge or lesions VAGINA: pink soto. No disch arge or lesions. No cystocele or rectocele EXTERNAL GENITALIA: Normal female. No le sions, erythema or discharge UTERUS: normal size, shape a nd consistency, normal mobility, nontender ADNEXA: no masses or tendern ess bilaterally
--- OUTSIDE RECORDS SUMMARY | 2024-11-04 07:39 | XMS_ITS | Encounter Summary ---
Author Organization [facility], Address [address] [place] [address] Phone Care Team Providers Care Software Engineer Kernel Name Role Phone Aamir Martinez MD Primary Care Provider [phone] Encounter Details Date Type Department Care Team (Late st Contact Info) Description 06/20/2023 Orders Only [facility] [address] [place] [address] Regulo Lynn DO [address] [place] [place] [address] Gitelman syndrome; Hypertensive disorder; Hypomagnesemia; Hypokalemia [...] Visit [facility] [address] [place] [address] Regulo Lynn DO [address] [place] [address] 06/03/2025 4:00 PM EDT Office Visit [facility], [address] [place] [address] Regulo Lynn, [address] [place] [address] documented as of this encounter Visit Diagnoses Diagnosis Gitelman syndrome Hypertensive disorder Hypomagnesemia Hypokalemia documented in this encounter Care Teams Software Engineer Kernel Relationship Specialty Start Date End Date Aamir Martinez MD [address] [address] PCP - General 06/29/19 documented as of this encounter
--- OUTSIDE RECORDS SUMMARY | 2024-11-04 07:39 | XMS_ITS | Encounter Summary ---
Author Organization [facility] [place], Address [address] [place] [address] Phone Care Team Providers Care Grooming Salon Manager Name Role Phone Aamir Martinez MD Primary Care Provider [phone] Encounter Details Date Type Department Care Team (Late st Contact Info) Description 11/15/2022 Orders Only [facility] [address] [place] [address] Regulo Lynn DO [address] [place] [place] [address] Gitelman syndrome; Hypokalemia; Hypertensive disorder; Hypomagnesemia [...] Visit [facility] [address] [place] [address] Regulo Lynn DO [address] [place] [address] 06/03/2025 4:00 PM EDT Office Visit [facility] [place], [address] [place] [address] Regulo Lynn, [address] [place] [address] documented as of this encounter Visit Diagnoses Diagnosis Gitelman syndrome Hypokalemia Hypertensive disorder Hypomagnesemia documented in this encounter Care Teams Grooming Salon Manager Relationship Specialty Start Date End Date Aamir Martinez MD [address] [address] PCP - General 06/29/19 documented as of this encounter
--- OUTSIDE RECORDS SUMMARY | 2024-11-04 07:39 | XMS_ITS | Patient Health Record ---
Author Organization [employer] [facility] Address [address] [place] [address] Care Team Providers Care Assistant Name Role Phone PATRICIA OVALLE, SARAH Primary Care Provider Unavail able Nancy Coker Unavailable [phone] Allergies Allergen (clinical drug ingredient) Drug/Non Drug Allergy documented on EMR Reaction Allergy Type Onset Date Status Penicillin Unknown Drug Allergy Active Substance with sulfonamide structure and antibacterial mechanism of action (substance) Sulfa Antibiotics Unknown Drug Allergy Active Results Component Value Reference Range Notes PDF Report Reviewed date:11/27/2023 11:17:42 AM Interpretation: Performing Lab:[facility], [address], [place], Phone - [phone], Director - [facility] Notes/Report: Clinical Information:VAGINAL/CERVICAL:LMP>LIVIER [id number] Dates / Results....06/15/21 NEGHPV No. of containers..01 ThinPrep Vial [id number] IGP No Culture 30 Plus Reviewed date:11/27/2023 11:17:58 AM Interpretation: Performing Lab:[facility], [address], [place], Phone - [phone], Director - [facility] Notes/Report: Clinical Information:VAGINAL/CERVICAL:LMP>LIVIER [id number] Dates / Results....06/15/21 NEGHPV No. of containers..01 ThinPrep Vial DIAGNOSIS: NEGATIVE FOR INTRAEPITHELIAL LESION OR MALIGNANCY. THIS SPECIMEN WAS RESCREENED PART OF OUR DATABASE ADMINISTRATOR PROGRAM. Specimen adequacy: Satisfactory for evaluation. Endocervical and/or squamous metaplastic cells (endocervical component) are present. Clinician provided ICD10: Z0 1.419 Performed by: Regulo Evans , Environmental Sampling Technician ([facility]) QC reviewed by: Annalee nicholas, Environmental Sampling Technician ([facility]) . . Note: The Pap smear is [...] Criteria not met, HPV Genotype not performed. Reason For Referral No Information Medications Medication SIG (Take, Route, Frequency, Duration) Notes Start Date End Date Status Slow-Mag 71.5-119 MG 2 tablets Orally On ce a day for 30 day(s) Active Yuvafem 10 MCG _insert 1 TABLET INTRAVAGINALLY TWICE A WEEK FOR 90 DAYS for 84 Active Trini Allergy 180 MG 1 tablet Orally O nce a day Active LORazepam 0.5 MG 1 tablet as needed Orally Active Spironolactone 25 MG 1 tablet Orally Active Multi-Vitamin Daily - 1 tablet Orally On ce a day Active Vitamin C 500 MG Orally Act jp Vitamin D3 5000 UNIT 1 capsule Orally On ce a day Active Alosetron HCl 1 MG TAKE 1 TABLET TWICE DAILY Oral for 90 Active Klor-Con 20 MEQ 1 packet Orally Twic e a day Not-Taking Losartan Potassium 50 MG 1 tablet Orally Once a day Active aMILoride HCl 5 MG 2 tablet Orally Once a day Active Yuvafem 10 MCG 1 tablet Vaginal TWI CE A WEEK for 90 days 06/21/2022 Active Levothyroxine Sodium 88 MCG 1 tablet Orally Once a day Active Yuvafem 10 MCG 1 tablet Vaginal TWI CE A WEEK for 90 days 10/31/2023 Active Social History Tobacco Use: Social History [...] drinks (0 point) Points 2 Interpretation Negative Problems Problem Type SNOMED Code ICD Code Onset Dates Problem Status W/U Status Risk Notes Problem Postmenopausal atrophic vaginitis (52274047) Postmenopausal atrophic vaginitis (N95.2) Active confirmed Problem Gynecological examination normal (569652167176955) Encounter for gynecological examination (general) (routine) without abnormal findings (Z01.419) Active confirmed Problem 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) Active confirmed Problem Human papilloma virus screening (773606610) Encounter for screening for human papillomavirus (HPV) (Z11.51) Active confirmed Vital Signs Temperature 97.9 degrees Fahrenheit 11/21/2023 Blood pressure diastolic 76 mm Hg 11/21/2023 Height 65.5 in 11/21/2023 Blood pressure systolic 120 mm Hg 11/21/2023 Weight 200 lbs 11/21/2023 BMI 32.77 kg/m2 11/21/2023 Encounters Encounter Location Date Provider Diagnosis [address] [address] 11/21/2023 Nancy Coker Encounter for screening for osteoporosis Z13.820 and Unsatisfactory cytologic smear of cervix R87.615 Assessments Encounter Date Diagnosis (ICD Code) Assessment Notes Treatment Notes Treatment Clinical Notes Section Notes 11/21/2023 Unsatisfactory cytologic smear of cervix (ICD-10 - R87.615) PAP TEST WITH HPV TYPING WAS OBTAINED. 11/21/2023 Encounter for screening for osteoporosis (ICD-10 - Z13.820) BONE DENSITY WAS ORDERED. Plan Of Treatment Pending Test Test Name Order Date MAMMOGRAM, SCREENING 06/08/2015 MAMMOGRAM, SCREENING 06/15/2021 MAMMOGRAM, SCREENING 06/21/2022 MAMMOGRAM, SCREENING 10/31/2023 Urinalysis 10/31/2023 Urinalysis 06/15/2021 Urinalysis 06/10/2016 Urinalysis 11/06/2018 THIN PREP,HPV,GRACIE IF HPV+ (>29YR)(DIAG) 10/31/2023 THIN PREP,HPV,GRACIE IF HPV+ (>29YR)(SCRN) 10/04/2017 BONE DENSITY 12/20/2015 BONE DENSITY 10/31/2023 BONE DENSITY 11/21/2023 MM Digital Mammo Screening 12/20/2015 MM Digital Mammo Screening 06/09/2020 MM Digital Mammo Screening 06/15/2021 MM Digital Mammo Screening 06/21/2022 MM Digital Mammo Screening 10/31/2023 Next Appt Details Provider Name:Nancy Walter fawn, 11/05/2024 10:40:00 AM, [address] [facility], [address], [place], [address], Insurance Providers Payer Name Payer Address Payer Phone Subscriber Number Group Number Insured Name Patient Relationship to Insured Coverage Start Date Coverage End Date [facility] [address] [place] [address] [id number] NYLA TIERNEY Self - patient is the insured Medical (General) History Medical History History ICD Code Hypothyroidism, unspecified E03.9 Essential (primary) hypertension I10 Irritable bowel syndrome with diarrhea K 58.0 Postmenopausal atrophic vaginitis N95.2 Asymptomatic menopausal state Z78.0 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
--- OUTSIDE RECORDS SUMMARY | 2024-11-04 07:39 | XMS_ITS | Encounter Summary ---
Author Organization [facility] Address [address] [place] [address] Phone Care Team Providers Care General Surgery Physician Assistant Name Role Phone Aamir Martinez MD Primary Care Provider [phone] Encounter Details Date Type Department Care Team (Late st Contact Info) Description 04/12/2023 Documentation Only [facility] [address] [place] [address] Regulo Lynn DO [address] [place] [address] Social History Tobacco Use Types Packs/Day Years [...] Visit [facility] [address] [place] [address] Regulo Lynn DO [address] [place] [address] 06/03/2025 4:00 PM EDT Office Visit [facility], [address] [place] [address] Regulo Lynn, [address] [place] [address] documented as of this encounter Visit Diagnoses Not on filedocumented in this encounter Care Teams General Surgery Physician Assistant Relationship Specialty Start Date End Date Aamir Martinez MD [address] [address] PCP - General 06/29/19 documented as of this encounter
--- OUTSIDE RECORDS SUMMARY | 2024-11-04 07:39 | XMS_ITS | Encounter Summary ---
Author Organization [facility], Address [address] [place] [address] Phone Care Team Providers Care Cash Management Coordinator Name Role Phone Aamir Martinez MD Primary Care Provider [phone] Encounter Details Date Type Department Care Team (Late st Contact Info) Description 10/01/2024 Orders Only [facility] [address] [place] [address] Regulo Lynn DO [address] [place] [address] Hypomagnesemia; Hypokalemia; Hypertensive disorder; Gitelman syndrome [...] Visit [facility] [address] [place] [address] Regulo Lynn DO [address] [place] [address] 06/03/2025 4:00 PM EDT Office Visit [facility] [place], [address] [place] [address] Regulo Lynn, [address] [place] [address] documented as of this encounter Visit Diagnoses Diagnosis Hypomagnesemia Hypokalemia Hypertensive disorder Gitelman syndrome documented in this encounter Care Teams Cash Management Coordinator Relationship Specialty Start Date End Date Aamir Martinez MD [address] [address] PCP - General 06/29/19 documented as of this encounter
--- OUTSIDE RECORDS SUMMARY | 2024-11-04 07:39 | XMS_ITS | Clinical Summary ---
Author Organization [facility] Address [address] [place] [address] Care Team Providers Care Operations Administrative Assistant Name Role Phone Aamir Martinez MD Primary Care Provider [phone] Social History Tobacco Use Types Packs/Day Years Used Date Smoking Tobacco: Never Assessed Comments Unknown Sex and Gender Information Value Date Recorded Sex Assigned at Not on file Legal Sex Female 5:11 PM EST Gender Identity Not on file Sexual Orientation Not on file Plan of Treatment Upcoming Encounters Date Type Department Care Team (Late st Contact Info) Description 11/23/2024 1:40 PM EDT Office Visit Gastroenterology - [address] [place] [address] Yakelin Rosa MD [address] [place] [address] Health Maintenance Due Date Last Done Comments Breast Cancer Screening 1955 DTaP,Tdap,and Td Vaccines (1 - Tdap) 1976 Pneumococcal Vaccine: 50+ Ye ars (1 of 1 - PCV) 2007 Zoster Vaccines (1 of 2) 2007 COVID-19 Vaccine ( - 2023-2 5 season) 2024 Influenza Vaccine (#1) 2024 Colorectal Cancer Screening: Colonoscopy 09/13/2024 Depression Screening 09/13/2024 Falls Risk Assessment 09/13/2024 Hepatitis C Screening 09/13/2024 Osteoporosis Screening (Bone Density Screening) 09/13/2024 Social Influencers of Health Screening 09/13/2024 RSV Immunization Patients 60 + Years Old (1 - 1-dose 75+ series) 2032 HIB Vaccines Aged Out No longer eligi ble based on patient's age to complete this topic HPV Vaccines Aged Out No longer eligi ble based on patient's age to complete this topic Hepatitis A Vaccines Aged Out No long er eligible based on patient's age to complete this topic Hepatitis B Vaccines Aged Out No long er eligible based on patient's age to complete this topic IPV Vaccines Aged Out No longer eligi ble based on patient's age to complete this topic MMR Vaccines Aged Out No longer eligi ble based on patient's age to complete this topic Meningococcal ACWY Vaccine Aged Out N o longer eligible based on patient's age to complete this topic Meningococcal B Vacine Aged Out No lo nger eligible based on patient's age to complete this topic RSV Immunization Patients Un mualik 20 months Aged Out No longer eligible b ased on patient's age to complete this topic Varicella Vaccines Aged Out No longer eligible based on patient's age to complete this topic Insurance MEDICARE [facility] [place] [id number] Care Teams Operations Administrative Assistant Relationship Specialty Start [place] [address] [place] [address] PCP - General Internal Medicine 1/21/25
--- OUTSIDE RECORDS SUMMARY | 2024-11-04 07:39 | XMS_ITS | Encounter Summary ---
Author Organization [facility], Address [address] [place] [address] Phone Care Team Providers Care Manufacturing Shift Supervisor Name Role Phone Aamir Martinez MD Primary Care Provider [phone] Encounter Details Date Type Department Care Team (Late st Contact Info) Description 09/24/2024 Orders Only [facility] [address] [place] [address] Regulo Lynn DO [address] [place] [address] Gitelman syndrome; Hypomagnesemia; Hypokalemia; Hypertensive disorder Social History Tobacco Use Types [...] Visit [facility] [address] [place] [phone] Regulo Lynn DO [address] [place] [address] 06/03/2025 4:00 PM EDT Office Visit [facility] [address] [place], [place] [address] Regulo Lynn DO [address] [place] [address] documented as of this encounter Procedures Procedure Name Priority Date/Time Associated Diagnosis Comments MAGNESIUM Routine 10/18/2024 12:23 PM EST Gitelman syndrome Hypomagnesemia Hypokalemia Hypertensive disorder RENAL FUNCTION PANEL Routine 10/18/2024 12:23 PM EST Gitelman syndrome Hypomagnesemia Hypokalemia Hypertensive disorder documented in this encounter Results * (ABNORMAL) Magnesium (10/18/2024 12:23 PM EST) Magnesium 1.4(L) 1.6 - 2.3 mg/dL [facility] Blood (Blood, Venous) 10/18/2024 12:23 PM EST 10/18/2024 us Regulo Lynn DO LAB BLOOD ORDERABLES Final Resu lt [facility] [address] [place] [address] * Renal Function Panel (10/18/2024 12:23 PM EST) Glucose 88 70 - 99 mg/dL [facility] BUN 19 8 - 27 mg/dL [facility] Creatinine 0.94 0.57 - 1.00 mg/dL [facility] eGFR CKD-EPI CR 2020 67 >59 mL/min/1.7 3 [facility] BUN/Creatinine Ratio 20 12 - 28 [facility] Sodium 138 134 - 144 mmol/L [facility] Potassium 3.9 3.5 - 5.2 mmol/L [facility] Chloride 96 96 - 106 mmol/L [facility] Bicarbonate (CO2) 24 20 - 29 mmol/L [facility] Calcium 9.9 8.7 - 10.3 mg/dL [facility] Albumin 4.5 3.9 - 4.9 g/dL [facility] Phosphorus 3.8 3.0 - 4.3 mg/dL [facility] Blood (Blood, Venous) 10/18/2024 12:23 PM EST 10/18/2024 us Regulo Lynn DO LAB BLOOD ORDERABLES [facility] [address] [place] [address] documented in this encounter Visit Diagnoses Diagnosis Gitelman syndrome Hypomagnesemia Hypokalemia Hypertensive disorder documented in this encounter Care Teams Manufacturing Shift Supervisor Relationship Specialty Start Date End Date Aamir Martinez MD [address] [address] PCP - General 06/29/19 documented as of this encounter
--- OUTSIDE RECORDS SUMMARY | 2024-11-04 07:39 | XMS_ITS | Encounter Summary ---
Author Organization [facility] [place], Address [address] [place] [address] Phone Care Team Providers Care Linseed Oil Refiner Name Role Phone Aamir Martinez MD Primary Care Provider [phone] Encounter Details Date Type Department Care Team (Late st Contact Info) Description 07/09/2024 Orders Only [facility] [address] [place] [address] Regulo Lynn DO [address] [facility] [address] [place] [address] Hypomagnesemia; Hypokalemia; Hypertensive disorder; Gitelman syndrome [...] Visit [facility] [address] [place] [phone] Regulo Lynn DO [address] [facility] [address] [place] [address] 06/03/2025 4:00 PM EDT Office Visit [facility] [place], [address] [place] [address] Regulo Lynn, [address] [facility] [address] 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
--- OUTSIDE RECORDS SUMMARY | 2024-11-04 07:39 | XMS_ITS | Encounter Summary ---
Author Organization [facility] [place], Address [address] [place] [address] Phone Care Team Providers Care Core Machine Tender Name Role Phone Aamir Martinez MD Primary Care Provider [phone] Encounter Details Date Type Department Care Team (Late st Contact Info) Description 01/10/2023 Orders Only [facility] [address] [place] [address] Regulo Lynn DO [address] [place] [address] Gitelman syndrome; Hypokalemia; Hypertensive disorder; Hypomagnesemia [...] Visit [facility] [address] [place] [address] Regulo Lynn DO [address] [place] [address] 06/03/2025 4:00 PM EDT Office Visit [facility] [place], [address] [place] [address] Regulo Lynn, [address] [place] [address] documented as of this encounter Visit Diagnoses Diagnosis Gitelman syndrome Hypokalemia Hypertensive disorder Hypomagnesemia documented in this encounter Care Teams Core Machine Tender Relationship Specialty Start Date End Date Aamir Martinez MD [address] [address] PCP - General 06/29/19 documented as of this encounter
--- OUTSIDE RECORDS SUMMARY | 2024-11-04 07:39 | XMS_ITS | Encounter Summary ---
Author Organization [facility] [place], Address [address] [place] [address] Phone Care Team Providers Care Ornamental Machine Operator Name Role Phone Aamir Martinez MD Primary Care Provider [phone] Encounter Details Date Type Department Care Team (Late st Contact Info) Description 10/18/2022 Orders Only [facility] [address] [place] [address] Regulo Lynn DO [address] [place] [address] Gitelman syndrome; Hypokalemia; Hypertensive disorder; Hypomagnesemia [...] Visit [facility] [address] [place] [phone] Regulo Lynn DO [address] [place] [address] 06/03/2025 4:00 PM EDT Office Visit [facility] [place], [address] [place] [address] Regulo Lynn, [address] [place] [place] [address] documented as of this encounter Visit Diagnoses Diagnosis Gitelman syndrome Hypokalemia Hypertensive disorder Hypomagnesemia documented in this encounter Care Teams Ornamental Machine Operator Relationship Specialty Start Date End Date Aamir Martinez MD [address] [phone] PCP - General 06/29/19 documented as of this encounter
--- OUTSIDE RECORDS SUMMARY | 2024-11-04 07:39 | XMS_ITS | Encounter Summary ---
Author Organization [facility] [place], Address [address] [place] [address] Phone Care Team Providers Care Supervisor Assembly And Packing Name Role Phone Aamir Martinez MD Primary Care Provider [phone] Encounter Details Date Type Department Care Team (Late st Contact Info) Description 07/30/2024 Orders Only [facility] [address] [place] [address] Regulo Lynn DO [address] [place] [address] Gitelman syndrome; Hypomagnesemia; Hypokalemia; Hypertensive disorder [...] Visit [facility] [address] [place] [address] Regulo Lynn DO [address] [facility] [address] [place] [address] 06/03/2025 4:00 PM EDT Office Visit [facility] [place], [address] [place] [address] Regulo Lynn, [address] [facility] [address] [place] [address] documented as of this encounter Visit Diagnoses Diagnosis Gitelman syndrome Hypomagnesemia Hypokalemia Hypertensive disorder documented in this encounter Care Teams Supervisor Assembly And Packing Relationship Specialty Start Date End Date Aamir Martinez MD [address] [address] PCP - General 06/29/19 documented as of this encounter
--- OUTSIDE RECORDS SUMMARY | 2024-11-04 07:39 | XMS_ITS | Data Portability ---
Author Organization [facility], Main Office Address [address] [place] [address] Care Team Providers Care Spring Assembler Name Role Phone AAMIR GOMEZ Primary Care Provider [phone] ESTEFANY WILKINS Metal Burrer COLE CHAVEZ Pipe Installer [phone] [facility] Raise Miner MONALISA ROSA Manufacturing Project Engineer TIFFANIE QUINTEROS Manager Resource Assessment No assessment recorded. Plan of Treatment Reminders Order Date Submit Date Provider Last Modified By Organization Details Last Modified Time Details Appointments PE EST 2024 02:15P Lisandro Gomez MD Not available Not available Not available Lab magnes ium, serum or plasma 2023 024 [facility], [address], [place], [address], 10/23/2024 09:10:34 urinal ysis, comple te 2023 024 [facility], [address], [place], [address], 10/24/2024 22:56:34 CMP, serum or plasma 2023 024 [facility], [address], [place], [address], 10/24/2024 22:56:33 lipid panel, serum 2023 024 [facility], [address], [address], [place], [address], 10/24/2024 22:56:35 vitami n D, 25-hyd paulino, total, serum 2023 024 [facility], [address], [address], [place], [address], 10/24/2024 22:56:36 TSH, serum or plasma 2023 024 [facility], [address], [address], [place], [address], 10/24/2024 22:56:36 CMP, serum or plasma 2023 024 [facility], [address], [address], [place], [place], [address], 10/12/2023 13:37:28 gamma- glutam yl transf erase (ggt), serum 2023 024 [facility], [address], [address], [place], [address], 10/12/2023 13:37:29 magnes ium, serum or plasma 2022 023 [facility], [address], [address], [place], [address], 04/12/2023 18:22:44 urinal ysis, comple te 2022 023 [facility], [address], [address], [place], [place], [address], 04/12/2023 16:57:19 CMP, serum or plasma 2022 023 [facility], [address], [address], [place], [place], [address], 04/12/2023 18:22:42 lipid panel, serum 2022 023 [facility], [address], [address], [place], [place], [address], 04/12/2023 18:22:43 ESR (eryth rocyte sedime ntatio n rate), blood 2022 023 [facility], [address], [address], [place], [place], [address], 04/12/2023 17:26:46 C-reac tive protei n, quanti tative , serum or plasma 2022 023 [facility], [address], [address], [place], [place], [address], 04/12/2023 18:49:59 unlist ed lab - lyme diseas e antibo dy w/refl ex west blot 2022 023 [facility], [address], [address], [place], [place], [address], 04/13/2023 09:46:05 CK (creat ine kinase ), total, serum 2022 023 [facility], [address], [address], [place], [place], [address], 04/12/2023 18:22:45 vitami n D, 25-hyd paulino, total, serum 2022 023 [facility], [address], [address], [place], [place], [address], 04/12/2023 18:32:14 TSH, serum or plasma 2022 023 [facility], [address], [address], [place], [address], 04/12/2023 18:32:13 Referral gyneco logist referr al 2023 024 [email or web address] Not available 04/23/2024 09:02:09 nutrit ionist /zahidai annabella referr al 2023 024 [email or web address] [facility], [address], [address], [place], [address], 04/23/2024 09:01:57 gyneco logist referr al 2022 023 Not available 04/08/2023 09:39:46 nutrit ionist /zahidai annabella referr al 2022 023 [facility], [address], [address], [facility] [place], [address], 05/07/2023 22:31:37 Procedures None record ed. Surgeries None record ed. Imaging bone densit y 2023 024 [facility], [address], [address], [place], [address], 05/10/2024 09:55:19 MAMMO, screen ing, bilate ral 2023 024 [facility], [address], [place], [address], 10/20/2024 10:17:15 bone densit y 2022 023 [email or web address] [facility], [address] [place] [address], [address], 04/23/2023 13:56:09 MAMMO, screen ing, bilate ral 2022 [facility]23 [email or web address] [address] [place], [address], 10/08/2023 09:40:47 Medication Orders loraze evonne 0.5 mg tablet 2024 025 [facility] #2339, [address], [place], [address], 2024 15:48:08 losart an 50 mg tablet 2024 [facility] [address], [place], [address], 2024 15:48:10 triamc inolon e aceton segun 0.1 % topica l cream 2024 025 [facility] [address], [place], [address], 2024 15:48:11 levoth yroxin e 88 mcg tablet 2024 025 [facility] [address], [place], [address], 2024 15:48:10 loraze evonne 0.5 mg tablet 2023 024 [facility] [address], [place], [address], 04/22/2024 16:25:01 azithr omycin 250 mg tablet 2023 025 [facility] [address], [place], [address], 2024 15:13:34 flutic asone propio kate 50 mcg/ac tuatio n nasal spray, suspen apple 2023 024 [facility] #2339, [address], [place], [address], 04/22/2024 16:24:51 loraze evonne 0.5 mg tablet 2023 024 [email or web address] [facility]/Pharmacy #2339, [address], [place], [address], 04/22/2024 15:50:28 levofl oxacin 500 mg tablet 2022 023 [email or web address] [facility] #2339, [address], [place], [address], 10/09/2023 15:37:06 loraze evonne 0.5 mg tablet 2022 023 [facility] #2339, [address], [place], [address], 04/07/2023 16:26:38 Patient TargetsNo targets recorded. Patient Instructions Encounter Date Encounter Id Patient Instructions Last Modified By Organization Details Last Modified Time 04/07/2023 [id number] irritable bowel syndrome: care instructions awychowski Not available 04/07/2023 16:26:34 varicose veins: care instructions awychowski Not available 04/07/2023 16:26:35 hypothyroidism: care instructions awychowski Not available 04/07/2023 16:26:34 body mass index: care instructions awychowski Not available 04/07/2023 16:26:34 learning about healthy weight awychowski Not available 04/07/2023 16:26:33 06/25/2023 [id number] Acute Sinusitis: Care Instructions pmadden Not available 06/25/2023 09:24:01 saline nasal washes: care instructions pmadden Not available 06/25/2023 09:24:01 Follow up if no improvement or if symptoms worsen. pmadden Not available 06/25/2023 09:25:43 04/22/2024 [id number] irritable bowel syndrome: care instructions awychowski Not available 04/22/2024 16:24:40 preventing falls: care instructions awychowski Not available 04/22/2024 16:24:41 well visit, over 65: care instructions awychowski Not available 04/22/2024 16:24:41 varicose veins: care instructions awychowski Not available 04/22/2024 16:24:40 hypothyroidism: care instructions awychowski Not available 04/22/2024 16:24:42 body mass index: care instructions awychowski Not available 04/22/2024 16:24:41 learning about healthy weight [email or web address] Not available 04/22/2024 16:24:40 Reason for Referral Organ Fixer Referral for Sc reening for malignant neoplasm of cervix Referring Physician: Aamir Gomez [facility], Encounter Date: 04/07/2023 Manager Eligibility/dietitian Refer ral for Body mass index 30+ - obesity Referring Physician: Aamir Gomez [facility], Encounter Date: 04/07/2023 Organ Fixer Referral for Sc reening for malignant neoplasm of cervix Referring Physician: Aamir Gomez [facility], Encounter Date: 04/22/2024 Manager Eligibility/dietitian Refer ral for Body mass index 30+ - obesity Referring Physician: Aamir Gomez [facility], Encounter Date: 04/22/2024 Results Created Date Observation Date Name Description Value Unit Range Abnormal Flag Note LastModifiedBy Organization Detail LastModifiedTime 04/12/2004/12/2023 LAB ONLY URINA LYSIS appear/color YELLO W CLEAR Not Available [facility] (Centralized Electronic Ordering - All Locations) Patient Can Go To The Location Of Their Choice, 04/12/2023 16:57:18 04/12/2004/12/2023 LAB ONLY URINA LYSIS sp. gravity 1.016 (1.002 -1.030 ) Not Available [facility] (Centralized Electronic Ordering - All Locations) Patient Can Go To The Location Of Their Choice, 04/12/2023 16:57:18 04/12/2004/12/2023 LAB ONLY URINA LYSIS urine pH 7.0 (5.0-8 .0) Not Available [facility] (Centralized Electronic Ordering - All Locations) Patient Can Go To The Location Of Their Choice, 04/12/2023 16:57:18 04/12/2004/12/2023 LAB ONLY URINA LYSIS urine albumin NEGATI VE (neg) Not Available [facility] (Centralized Electronic Ordering - All Locations) Patient Can Go To The Location Of Their Choice, 04/12/2023 16:57:18 04/12/2004/12/2023 LAB ONLY URINA LYSIS urine glucose NEGATI VE (neg) Not Available [facility] (Centralized Electronic Ordering - All Locations) Patient Can Go To The Location Of Their Choice, 04/12/2023 16:57:18 04/12/2004/12/2023 LAB ONLY URINA LYSIS urine ketones NEGATI VE (neg) Not Available [facility] (Centralized Electronic Ordering - All Locations) Patient Can Go To The Location Of Their Choice, 04/12/2023 16:57:18 04/12/2004/12/2023 LAB ONLY URINA LYSIS urine bilirubin NEGATI VE (neg) Not Available [facility] (Centralized Electronic Ordering - All Locations) Patient Can Go To The Location Of Their Choice, 04/12/2023 16:57:18 04/12/2004/12/2023 LAB ONLY URINA LYSIS urine hemoglobin NEGATI VE (neg) Not Available [facility] (Centralized Electronic Ordering - All Locations) Patient Can Go To The Location Of Their Choice, 04/12/2023 16:57:18 04/12/2004/12/2023 LAB ONLY URINA LYSIS urine nitrite NEGATI VE (neg) Not Available [facility] (Centralized Electronic Ordering - All Locations) Patient Can Go To The Location Of Their Choice, 04/12/2023 16:57:18 04/12/2004/12/2023 LAB ONLY URINA LYSIS urine leukocyte 1+ (neg) abnormal Not Available [facility] ([facility] Order[facility] - All Locations) Patient Can Go To The Location Of Their Choice, 04/12/2023 16:57:18 04/12/2004/12/2023 LAB ONLY URINA LYSIS urobilinogen NORMAL mg/dL (norm) Not Available [facility] ([facility] - All Locations) Patient Can Go To The Location Of Their Choice, 04/12/2023 16:57:18 04/12/2004/12/2023 LAB ONLY URINA LYSIS urine WBCs 5 /hpf (0-5) Not Available [facility] (Centralized Electronic Ordering - All Locations) Patient Can Go To The Location Of Their Choice, 04/12/2023 16:57:18 04/12/2004/12/2023 LAB ONLY URINA LYSIS urine RBCs NONE SEEN /hpf (0-3) Not Available [facility] (Centralized Electronic Ordering - All Locations) Patient Can Go To The Location Of Their Choice, 04/12/2023 16:57:18 04/12/2004/12/2023 LAB ONLY URINA LYSIS squamous epith 3 /hpf (0-8) Not Available [facility] (Centralized Electronic Ordering - All Locations) Patient Can Go To The Location Of Their Choice, 04/12/2023 16:57:18 04/12/20 23 04/12/2023 SEDIM ENTAT ION RATE, AUTOM ATED sedimentatio n rate,automat ed 33 mm/HR (0-20) high Not Available [facility] (Centralized Electronic Ordering - All Locations) Patient Can Go To The Location Of Their Choice, 04/12/2023 17:26:46 04/12/20 23 04/12/2023 COMPR EHENS AMISH METAB OLIC PANL glucose 86 mg/dL (70-99 ) Not Available [facility] (Centralized Electronic Ordering - All Locations) Patient Can Go To The Location Of Their Choice, [id number] 04/12/2023 18:22:42 04/12/20 23 04/12/2023 COMPR EHENS AMISH METAB OLIC PANL BUN 16 mg/dL (8-23) Not Available [facility] (Centralized Electronic Ordering - All Locations) Patient Can Go To The Location Of Their Choice, [id number] 04/12/2023 18:22:42 04/12/20 23 04/12/2023 COMPR EHENS AMISH METAB OLIC PANL creatinine 0.8 mg/dL (0.5-1 .0) Not Available [facility] (Centralized Electronic Ordering - All Locations) Patient Can Go To The Location Of Their Choice, 04/12/2023 18:22:42 04/12/20 23 04/12/2023 COMPR EHENS AMISH METAB OLIC PANL sodium 137 mmol/ L (133-1 45) Not Available [facility] (Centralized Electronic Ordering - All Locations) Patient Can Go To The Location Of Their Choice, 04/12/2023 18:22:42 04/12/20 23 04/12/2023 COMPR EHENS AMISH METAB OLIC PANL potassium 3.3 mmol/ L (3.6-5 .2) low Not Available [facility] (Centralized Electronic Ordering - All Locations) Patient Can Go To The Location Of Their Choice, 04/12/2023 18:22:42 04/12/2004/12/2023 COMPR EHENS AMISH METAB OLIC PANL chloride 97 mmol/ L (98-10 7) low Not Available [facility] (Centralized Electronic Ordering - All Locations) Patient Can Go To The Location Of Their Choice, 04/12/2023 18:22:42 04/12/20 23 04/12/2023 COMPR EHENS AMISH METAB OLIC PANL bicarbonate 27 mmol/ L (22-29 ) Not Available [facility] (Centralized Electronic Ordering - All Locations) Patient Can Go To The Location Of Their Choice, 04/12/2023 18:22:42 04/12/20 23 04/12/2023 COMPR EHENS AMISH METAB OLIC PANL anion gap 13 (4-17) Not Available [facility] (Centralized Electronic Ordering - All Locations) Patient Can Go To The Location Of Their Choice, 04/12/2023 18:22:42 04/12/20 23 04/12/2023 COMPR EHENS AMISH METAB OLIC PANL albumin 4.2 gm/dL (3.4-4 .8) Not Available [facility] (Centralized Electronic Ordering - All Locations) Patient Can Go To The Location Of Their Choice, 04/12/2023 18:22:42 04/12/20 23 04/12/2023 COMPR EHENS AMISH METAB OLIC PANL calcium 9.7 mg/dL (8.6-1 0.5) Not Available [facility] (Centralized Electronic Ordering - All Locations) Patient Can Go To The Location Of Their Choice, 04/12/2023 18:22:42 04/12/20 23 04/12/2023 COMPR EHENS AMISH METAB OLIC PANL bilirubin,to nadiya 0.8 mg/dL (0-1.2 ) Not Available [facility] (Centralized Electronic Ordering - All Locations) Patient Can Go To The Location Of Their Choice, 04/12/2023 18:22:42 04/12/20 23 04/12/2023 COMPR EHENS AMISH METAB OLIC PANL total protein 7.3 gm/dL (6.2-8 .2) Not Available [facility] (Centralized Electronic Ordering - All Locations) Patient Can Go To The Location Of Their Choice, 04/12/2023 18:22:42 04/12/2004/12/2023 COMPR EHENS AMISH METAB OLIC PANL Ag ratio 1.4 Not Available [facility] (Centralized Electronic Ordering - All Locations) Patient Can Go To The Location Of Their Choice, 04/12/2023 18:22:42 04/12/20 23 04/12/2023 COMPR EHENS AMISH METAB OLIC PANL AST 29 U/L (0-32) Not Available [facility] (Centralized Electronic Ordering - All Locations) Patient Can Go To The Location Of Their Choice, 04/12/2023 18:22:42 04/12/20 23 04/12/2023 COMPR EHENS AMISH METAB OLIC PANL alk phos 177 U/L (35-10 4) high Not Available [facility] (Centralized Electronic Ordering - All Locations) Patient Can Go To The Location Of Their Choice, 04/12/2023 18:22:42 04/12/20 23 04/12/2023 COMPR EHENS AMISH METAB OLIC PANL ALT 37 U/L (0-33) high Not Available [facility] (Centralized Electronic Ordering - All Locations) Patient Can Go To The Location Of Their Choice, 04/12/2023 18:22:42 04/12/20 23 04/12/2023 COMPR EHENS AMISH METAB OLIC PANL estimated GFR creatinine 82 mL/mi n/1.7 3_M2 Creat inine based estim ated glome rular filtr ation (eGFR ) in adult s is calcu lated using the Natio nal Kidne y Found ation recom aaliyah d 2020 CKD-E PI equat ion. Estim ates GFR from serum creat inine , age and sex. Not Available [facility] (Centralized Electronic Ordering - All Locations) Patient Can Go To The Location Of Their Choice, 04/12/2023 18:22:42 04/12/2004/12/2023 LIPID PANEL cholesterol, total 177 mg/dL (<200) Not Available [facility] ([facility] Ordering - All Locations) Patient Can Go To The Location Of Their Choice, 04/12/2023 18:22:43 04/12/2004/12/2023 LIPID PANEL triglyceride 53 mg/dL (<150) Not Available [facility] (Central[facility] Ordering - All Locations) Patient Can Go To The Location Of Their Choice, 04/12/2023 18:22:43 04/12/20 23 04/12/2023 LIPID PANEL HDL chol 64 mg/dL (>39) Not Available [facility] (Centralized Electronic Ordering - All Locations) Patient Can Go To The Location Of Their Choice, 04/12/2023 18:22:43 04/12/20 23 04/12/2023 LIPID PANEL LDL cholesterol, calculated 102 mg/dL (0-130 ) Not Available [facility] (Centralized Electronic Ordering - All Locations) Patient Can Go To The Location Of Their Choice, 04/12/2023 18:22:43 04/12/2004/12/2023 LIPID PANEL non HDL cholesterol (calc) 113 mg/dL (<160) Not Available [facility] (Centralized Electronic Ordering - All Locations) Patient Can Go To The Location Of Their Choice, 04/12/2023 18:22:43 04/12/2004/12/2023 MAGNE SIUM magnesium 1.2 mg/dL (1.6-2 .3) low Not Available [facility] (Centralized Electronic Ordering - All Locations) Patient Can Go To The Location Of Their Choice, 04/12/2023 18:22:44 04/12/2004/12/2023 CK,TO NADIYA ONLY CK,total only 51 U/L (0-190 ) Not Available [facility] (Centralized Electronic Ordering - All Locations) Patient Can Go To The Location Of Their Choice, 04/12/2023 18:22:45 04/12/2004/12/2023 TSH WITH REFLE X TO FT4 TSH 2.78 uIU/m L (0.4-4 .2) Not Available [facility] (Centralized Electronic Ordering - All Locations) Patient Can Go To The Location Of Their Choice, 04/12/2023 18:32:13 04/12/2004/12/2023 25OH VITAM IN D 25OH vitamin D 68.2 NG/mL (20-50 ) high Not Available [facility] (Centralized Electronic Ordering - All Locations) Patient Can Go To The Location Of Their Choice, 04/12/2023 18:32:14 04/12/2004/12/2023 C-JAN CTIVE PROTE IN C-reactive protein 2.0 mg/dL (0-0.5 ) high Not Available [facility] (Centralized Electronic Ordering - All Locations) Patient Can Go To The Location Of Their Choice, 04/12/2023 18:49:59 04/12/2004/13/2023 LYME AB W/REF MYKE lyme Ab w/reflex (neg) NEGAT AMISH NO ANTIB CECILIA TO BORRE LLIA BURGD ORFER I DETEC CARIE. PATIE NTS IN EARLY STAGE S OF INFEC TION OR WHO WERE GIVEN EARLY ANTIB IOTIC TREAT MENT MAY NOT PRODU CE DETEC TABLE LEVEL S OF ANTIB CECILIA. THESE PATIE NTS WOULD BENEF IT FROM REPEA T TESTI NG IN 2 TO 4 WEEKS . Testi ng perfo rmed by the [employer] ex 2200 multi plex flow immun oassa y syste m Not Available [facility] (Centralized Electronic Ordering - All Locations) Patient Can Go To The Location Of Their Choice, 04/13/2023 09:46:04 10/12/1910/12/2023 COMPR EHENS AMISH METAB OLIC PANL glucose 96 mg/dL (70-99 ) Not Available [facility] (Centralized Electronic Ordering - All Locations) Patient Can Go To The Location Of Their Choice, 10/12/2023 13:37:28 10/12/19 24 10/12/2023 COMPR EHENS AMISH METAB OLIC PANL BUN 16 mg/dL (8-23) Not Available [facility] (Centralized Electronic Ordering - All Locations) Patient Can Go To The Location Of Their Choice, 10/12/2023 13:37:28 10/12/19 24 10/12/2023 COMPR EHENS AMISH METAB OLIC PANL creatinine 0.9 mg/dL (0.5-1 .0) Not Available [facility] (Centralized Electronic Ordering - All Locations) Patient Can Go To The Location Of Their Choice, 10/12/2023 13:37:28 10/12/19 24 10/12/2023 COMPR EHENS AMISH METAB OLIC PANL sodium 136 mmol/ L (133-1 45) Not Available [facility] (Centralized Electronic Ordering - All Locations) Patient Can Go To The Location Of Their Choice, 10/12/2023 13:37:28 10/12/19 24 10/12/2023 COMPR EHENS AMISH METAB OLIC PANL potassium 3.9 mmol/ L (3.6-5 .2) Not Available [facility] (Centralized Electronic Ordering - All Locations) Patient Can Go To The Location Of Their Choice, 10/12/2023 13:37:28 10/12/19 24 10/12/2023 COMPR EHENS AMISH METAB OLIC PANL chloride 99 mmol/ L (98-10 7) Not Available [facility] (Centralized Electronic Ordering - All Locations) Patient Can Go To The Location Of Their Choice, 10/12/2023 13:37:28 10/12/1910/12/2023 COMPR EHENS AMISH METAB OLIC PANL bicarbonate 26 mmol/ L (22-29 ) Not Available [facility] (Centralized Electronic Ordering - All Locations) Patient Can Go To The Location Of Their Choice, 10/12/2023 13:37:28 10/12/1910/12/2023 COMPR EHENS AMISH METAB OLIC PANL anion gap 11 (4-17) Not Available [facility] (Centralized Electronic Ordering - All Locations) Patient Can Go To The Location Of Their Choice, 10/12/2023 13:37:28 10/12/1910/12/2023 COMPR EHENS AMISH METAB OLIC PANL albumin 4.1 gm/dL (3.4-4 .8) Not Available [facility] (Centralized Electronic Ordering - All Locations) Patient Can Go To The Location Of Their Choice, 10/12/2023 13:37:28 10/12/1910/12/2023 COMPR EHENS AMISH METAB OLIC PANL calcium 9.5 mg/dL (8.6-1 0.5) Not Available [facility] (Centralized Electronic Ordering - All Locations) Patient Can Go To The Location Of Their Choice, 10/12/2023 13:37:28 10/12/1910/12/2023 COMPR EHENS AMISH METAB OLIC PANL bilirubin,to nadiya 0.7 mg/dL (0-1.2 ) Not Available [facility] (Centralized Electronic Ordering - All Locations) Patient Can Go To The Location Of Their Choice, 10/12/2023 13:37:28 10/12/19 24 10/12/2023 COMPR EHENS AMISH METAB OLIC PANL total protein 7.0 gm/dL (6.2-8 .2) Not Available [facility] (Centralized Electronic Ordering - All Locations) Patient Can Go To The Location Of Their Choice, 10/12/2023 13:37:28 10/12/19 24 10/12/2023 COMPR EHENS AMISH METAB OLIC PANL Ag ratio 1.4 Not Available [facility] (Centralized Electronic Ordering - All Locations) Patient Can Go To The Location Of Their Choice, 10/12/2023 13:37:28 10/12/19 24 10/12/2023 COMPR EHENS AMISH METAB OLIC PANL AST 33 U/L (0-32) high Not Available [facility] (Centralized Electronic Ordering - All Locations) Patient Can Go To The Location Of Their Choice, 10/12/2023 13:37:28 10/12/19 24 10/12/2023 COMPR EHENS AMISH METAB OLIC PANL alk phos 124 U/L (35-10 4) high Not Available [facility] (Centralized Electronic Ordering - All Locations) Patient Can Go To The Location Of Their Choice, 10/12/2023 13:37:28 10/12/19 24 10/12/2023 COMPR EHENS AMISH METAB OLIC PANL ALT 40 U/L (0-33) high Not Available [facility] (Centralized Electronic Ordering - All Locations) Patient Can Go To The Location Of Their Choice, 10/12/2023 13:37:28 10/12/19 24 10/12/2023 COMPR EHENS AMISH METAB OLIC PANL estimated GFR creatinine 68 mL/mi n/1.7 3_M2 Creat inine based estim ated glome rular filtr ation (eGFR ) in adult s is calcu lated using the Natio nal Kidne y Found ation recom aaliyah d 2020 CKD-E PI equat ion. Estim ates GFR from serum creat inine , age and sex. Not Available [facility] (Centralized Electronic Ordering - All Locations) Patient Can Go To The Location Of Their Choice, [id number] 10/12/2023 13:37:28 10/12/19 24 10/12/2023 GGTP ggtp 85 U/L (5-36) high Not Available [facility] (Centralized Electronic Ordering - All Locations) Patient Can Go To The Location Of Their Choice, [id number] 10/12/2023 13:37:29 11/06/19 24 10/25/2023 MAMMO , scree cyndy, bilat eral No observ ation record ed. [email or web address] [facility] [address] [place], [address], 11/06/2023 08:18:48 Result Notes None recorded. Problems Name Problem SNOMED Code Status Onset Date Resolution Date Notes Provider Name and Address Organization Details Recorded Time Body mass index 30+ - obesity 980438348 Completed 03/17/2020 Aamir Gomez MD [address], [place], [address] , [facility] [place] 14:52:20 Abnormal vision 2358645 Completed 02/24/2017 Aamir Gomez MD [address], [place], [address] , [facility] [place] 09:23:45 Rosacea 794241954 Active FRANCIA Anne, [facility] 4 15:35:14 Hypothyroi dism 12123319 Active 2019 Not Available [facility] 3 04:26:02 Hypertensi ve disorder 33842636 Active 2019 Not Available [facility] 3 04:26:02 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 FRANCIA Anne, [facility] 4 15:35:14 Diverticul ar disease 637301792 Active 2019 Not Available [facility] 3 04:26:02 Internal hemorrhoid s 32222029 Active FRANCIA Anne, [facility] 4 15:35:14 Hyperchole sterolemia 43834814 Completed 201610/24/2020 Aamir Gomez MD [address], [place], [address] , [facility] [place] 15:59:47 Liver enzymes level above reference range 566465425 Active 2016 FRANCIA Anne, [facility] 4 15:35:14 Hypokalemi a 30587881 Completed 201608/29/2016 FRANCIA Anne, [facility] 4 15:35:14 Metabolic acidosis 20094691 Active 2016 Not Available [facility] 3 04:26:02 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 Not Available [facility] 3 04:26:02 Irritable bowel syndrome 10574496 Active 2016 FRANCIA Anne, [facility] [facility] 4 15:35:14 Vitamin D deficiency 42904223 Active 2016 Not Available [facility] 3 04:26:02 Sacroiliac disorder 154989545 Completed 201603/19/2021 right Aamir Gomez MD [address], [place], [address] , [facility] [place] 16:10:02 Environmen nadiya allergy 747666347 Active 2017 FRANCIA Anne, [facility] 4 15:35:14 Body mass index 30+ - obesity 450471180 Active 2019 FRANCIA Anne, [facility] 4 15:35:14 Venous insufficie ncy of leg 319205374 Active 2020 FRANCIA Anne [facility] 4 15:35:14 Varicose veins of lower extremity 07959090 Active 2020 FRANCIA Anne, [facility] 4 15:35:14 Hypomagnrob huddleston 911918624 Active 2019 Not Available [facility] 3 04:26:02 Hyperchole sterolemia 08403109 Active 2016 Not Available [facility] 3 04:26:02 Peripheral vascular disease 974815939 Active 2022 FRANCIA Anne, [facility] 4 15:35:14 Notes:Some problems listed i n Document: #[id number] could not be added to this patient's chart. Please review this document and add these problems to the patient's chart manually as needed. Problem Notes None recorded. Procedures Surgical History Date Name Laterality Status Provider Name and Address Organization Details Recorded Time 10/25/19 24 Most Recent Mammogram completed Kelsey Navarro [facility] 11/06/2023 08:18:36 09/21/19 23 Mammogram both breasts completed Marisa Blanco MA [facility] 04/07/2023 15:30:37 02/17/20 21 Date of Last Colonoscopy completed Pinky Lopez [facility] 02/21/2021 11:38:31 02/17/20 21 Colonoscopy completed Pinky Lopez [facility] 02/21/2021 11:38:17 07/21/20 20 Mammogram Screening completed Pinky Lopez [facility] 07/24/2020 15:27:51 10/04/19 18 Date of Last Pap Smear completed Pinky Lopez [facility] 03/17/2018 09:13:36 01/26/20 16 Most Recent Bone Density completed Gosia Piper MA [facility] 02/22/2016 14:09:45 01/26/20 16 Dxa bone density study completed Gosia Piper MA [facility] 02/22/2016 14:09:45 08/25/18 88 Breast Biopsy completed Gosia Piper MA [facility] 02/22/2016 14:09:45 Laparoscopy completed Aamir Gomez MD [address], [place], [address], [facility] [place]12[place]2019 14:48:25 Breast Biopsy completed Gosia abrams MA [facility] 03/17/2020 14:17:51 Imaging Results Imaging Date Name Status LastModified by Organiz ation Details LastModified Time 10/25/2023 MAMMO, screening, bilateral completed [email or web address] [facility] [address] [place], [address], 11/06/2023 08:18:48 Procedure Notes None recorded. Medical Equipment None Reported. Allergies Allergen ID Allergen Name Allergen Category Reaction Reaction Severity Criticality Documentation Date Start Date Code Code System Note Provider Name and Address Organization Details Recorded Time 64889 Product containin g penicilli n (product) medicatio n hives Not available Not available 02/22/2016 54329 8001 SNOMED FRANCIA Sunshine [facility] 6 14:09:45 15214 Substance with sulfonami de structure and antibacte rial mechanism of action (substanc e) medicatio n hives Not available Not available 02/22/2016 19767 8003 SNOMED FRANCIA Sunshine [facility] 6 14:09:45 81430 bacitraci n medicatio n other Not available Not available 04/04/20222020 1291 RxNorm FRANCIA Sunshine [facility] 2 14:23:12 Medications Name Sig Start Date Stop Date Status Note LastModified by Organization Details LastModified Time losartan 50 mg tablet Take 1 tablet every 24 hours by oral route for 90 days. 2024 active Not Available Not Available Not Avai lable prednison e 10 mg tablet 4 TABLET BY MOUTH DAILY,X5 DAYS,INS TR:FIRST DOSE NOW, THEN TAKE IN AM DAILY. TAKE W/FOOD. 03/17 completed Not Available Not Available Not Available doxycycli ne hyclate 100 mg capsule TAKE 1 CAPSULE BY MOUTH TWICE A DAY FOR 7 DAYS 04/22 completed Not Available Not Available Not Available Saline Mist 0.65 % nasal spray aerosol Take 2 sprays 4 times a day by nasal route. 04/04 completed Not Available Not Available Not Available azithromy makenna 250 mg tablet TAKE 2 TABLETS BY MOUTH TODAY, THEN TAKE 1 TABLET DAILY FOR 4 DAYS DIRECTED 10/19 completed Not Available Not Available Not Available benzonata te 200 mg capsule TAKE 1 CAPSULE BY MOUTH THREE TIMES A DAY NEEDED FOR 10 DAYS 10/21 completed Not Available Not Available Not Available prednison e 20 mg tablet TAKE 2 TABLETS BY MOUTH EVERY DAY FOR 5 DAYS 10/19 completed Not Available Not Available Not Available doxycycli ne hyclate 50 mg capsule Take 1 capsule every day by oral route as needed for 30 days. 08/28 completed for rosacea Not Available Not Available Not Available triamcino lone acetonide 0.1 % topical cream APPLY 1 APPLICAT ION EVERY DAY BY TOPICAL ROUTE FOR 90 DAYS. active Not Available Not Available No t Available spironola ctone 25 mg tablet TAKE 1 TABLET BY MOUTH 1 TIME EACH DAY. active Not Available Not Available No t Available ketorolac 0.5 % eye drops INSTILL 1 DROP INTO OPERATIV E EYE(S) TWICE A DAY START 2 DAYS PRIOR TO SURGERY. 10/19 completed Not Available Not Available Not Available levothyro xine 88 mcg tablet Take 1 tablet every 24 hours by oral route for 90 days. 2024 active Not Available Not Available Not Avai lable amiloride 5 mg tablet TAKE 3 TABLETS (15 MG TOTAL) BY MOUTH IN THE MORNING AND 3 TABLETS (15 MG TOTAL) IN THE EVENING. active Not Available Not Available No t Available lorazepam 0.5 mg tablet TAKE 1 TABLET BY MOUTH EVERY DAY NEEDED active Not Available Not Available No t Available alosetron 1 mg tablet TAKE 1 TABLET BY MOUTH TWICE A DAY active Not Available Not Available No t Available Magtab 84 mg tablet,ex tended release Take 1 tablet 3 times a day by oral route as directed for 30 days. 2022 active Not Available Not Available Not Avai lable cephalexi n 500 mg capsule 03/12 completed Not Available Not Available Not Available metronida zole 0.75 % topical cream Apply 1 applicat ion twice a day by topical route as directed for 20 days. 03/06 completed Not Available Not Available Not Available Baby Aspirin 81 mg chewable tablet Chew 1 tablet every day by oral route. 03/12 completed Not Available Not Available Not Available lorazepam 1 mg tablet TAKE 1 TO 2 TABLETS BY MOUTH 1 HOUR PRIOR TO SURGERY 10/19 completed Not Available Not Available Not Available levofloxa makenna 500 mg tablet TAKE 1 TABLET BY MOUTH EVERY 24 HOURS FOR 10 DAYS 10/09 completed Not Available Not Available Not Available albuterol sulfate HFA 90 mcg/actua tion aerosol inhaler 2 PUFFS INHALATI ON EVERY 4 HOURS,X3 0 DAYS,PRN :WHEEZIN G/SHORTN ESS OF BREATH,I NSTR:, COUGH, OR SOB 03/17 completed Not Available Not Available Not Available fluticaso ne propionat e 50 mcg/actua tion nasal spray,stu pension INSTILL 2 SPRAYS INTO EACH NOSTRIL ONCE DAILY DIRECTED active Not Available Not Available No t Available doxycycli ne hyclate 100 mg tablet Take 1 tablet twice a day by oral route for 10 days. 08/28 completed Not Available Not Available Not Available dicyclomi ne 10 mg capsule TAKE 1 CAPSULE BY MOUTH TWICE A DAY NEEDED active Not Available Not Available No t Available ipratropi um bromide 21 mcg (0.03 %) nasal spray TAKE 1 SPRAY INTRANAS ALLY DIRECTED 3 TIMES PER DAY FOR 7 DAYS 10/19 completed Not Available Not Available Not Available Vitamin C 500 mg capsule,e xtended release Take 1 capsule every day by oral route. active Not Available Not Available No t Available Klor-Con M20 mEq tablet,ex tended release TAKE 1 TABLET BY MOUTH TWICE A DAY 04/22 completed Not Available Not Available Not Available Vitamin D3 1 tab oral daily 08/11 completed Not Available Not Available Not Available Slow-Mag 1 tab oral daily 04/13 completed Not Available Not Available Not Available Calcium 500 1 tab daily orally 03/17 completed Not Available Not Available Not Available Multivita min 50 Plus 1 tab daily orally active Not Available Not Available No t Available Locoid 0.1 % lotion Apply 1 applicat ion twice a day by topical route as directed for 30 days. 03/17 completed Not Available Not Available Not Available Vitamin D 5,000 unit tablet 1 tablet po 4 x per week 10/19 completed Not Available Not Available Not Available D3-2000 50 mcg (2,000 unit) capsule Take 1 capsule every day by oral route. active Not Available Not Available No t Available Trini Allergy 180 mg tablet Take 1 tablet every day by oral route. active Not Available Not Available No t Available Yuvafem 10 mcg vaginal tablet INSERT 1 TABLET VAGINALL Y TWICE A WEEK 90 DAYS active Not Available Not Available No t Available Vitals Date Recorded Body height Body mass index (BMI) Body weight Heart rate Body temperature Systolic blood pressure Diastolic blood pressure Provider Name and Address Organization Details Last Updated DateTime 3 164.465 cm 33.1 kg/m2 77305.1 g 78 /min 98.9 [degF] 124 mm[Hg] 79 mm[Hg] Marisa Sapp [facility] 3 15:25:26 Date Recorded Body height Body mass index (BMI) Body weight Heart rate Oxygen saturation Oxygen saturation in Arterial blood by Pulse oximetry Body temperature Systolic blood pressure Diastolic blood pressure Provider Name and Address Organization Details Last Updated DateTime 3 164.465 cm 32.6 kg/m2 88744.3 2 g 90 /min 98 % 98 % 98.1 [degF] 122 mm[Hg] 81 mm[Hg] Marisa Sapp [facility] 3 08:59:08 Date Recorded Body height Body mass index (BMI) Body weight Oxygen saturation Oxygen saturation in Arterial blood by Pulse oximetry Heart rate Body temperature Systolic blood pressure Diastolic blood pressure Provider Name and Address Organization Details Last Updated DateTime 4 164.465 cm 33.3 kg/m2 59809.0 9 g 100 % 100 % 72 /min 97.8 [degF] 114 mm[Hg] 72 mm[Hg] Nasreen Bustos MA [facility] 4 15:34:48 Date Recorded Body height Body mass index (BMI) Body weight Heart rate Oxygen saturation Oxygen saturation in Arterial blood by Pulse oximetry Body temperature Systolic blood pressure Diastolic blood pressure Provider Name and Address Organization Details Last Updated DateTime 4 164.465 cm 32.5 kg/m2 48265.9 2 g 68 /min 99 % 99 % 98.2 [degF] 113 mm[Hg] 69 mm[Hg] Delores fuller MA [facility] 4 15:43:00 Date Recorded Body height Body mass index (BMI) Body weight Heart rate Oxygen saturation Oxygen saturation in Arterial blood by Pulse oximetry Body temperature Systolic blood pressure Diastolic blood pressure Provider Name and Address Organization Details Last Updated DateTime 5 164.465 cm 34.2 kg/m2 67553.8 4 g 75 /min 99 % 99 % 98.4 [degF] 126 mm[Hg] 72 mm[Hg] Marisa Blanco [facility] 5 15:12:46 Social History Question Answer Notes LastModified by Organizat ion Details LastModified Time Tobacco Smoking Status Never Smoker FRANCIA Sunshine, [facility] 02/22/2016 14:09:45 Do You Have An Advance Directive? Yes HCP/ -Damion piña Information not available 10/24/2020 What Is Your Level Of Alcohol Consumption? Occasional Rare Information not available 04/22/2024 Is Blood Transfusion Acceptable In An Emergency? Yes Information not available 02/22/2016 What Is Your Level Of Caffeine Consumption? Occasional Tea Information not available 04/22/2024 How Much Tobacco Do You Chew? None Information not available 02/24/2017 Are You Currently Employed? Yes Information not available 02/22/2016 What Type Of Diet Are You Following? REGULAR Information not available 02/22/2016 Do You Or Have You Ever Used E-cigarettes Or Vape? 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 Yes Information not available 02/22/2016 How Often Do You Need To Have Someone Help You When You Read Instructions, Pamphlets, Or Other Written Material From Your Doctor Or Pharmacy? Never Information not available 02/22/2016 Have You Served In The ? No Information not available 02/24/2017 Have You Or Anyone In Your Household Had Any Of The Following Symptoms In The Last 14 Days: Sore Throat, Cough, Chills, Body Aches For Unknown Reasons, Shortness Of Breath For Unknown Reasons, Loss Of Smell, Loss Of Taste, Fever At Or Greater Than 100 Degrees Fahrenheit? No Information not available 03/17/2020 Are You Or Anyone In Your Household A Health Care Provider Or Emergency Responder? No Information not available 03/17/2020 To The Best Of Your Knowledge Have You Been In Close Proximity To Any Individual Who Tested Positive For COVID-19? No Information not available 03/17/2020 *AWV ONLY* Are You Presently Prescribed Opioid Medication By PCP Or Specialist? If YES -Provider Assess The Benefit For Other, Non-opioid Pain Therapies Instead, Even If The Patient Does Not Have OUD But Is Possibly At Risk. No Information not available 03/19/2021 Have You Recently Traveled To A COVID-19 High Risk Area Or Gathering In The Last 10 Days? No Information not available 10/24/2020 What Was The Date Of Your Most Recent Tobacco Screening? 04/22/2024 Information not available 04/22/2024 How Many Children Do You Have? 0 Information not available 02/22/2016 Do You Use Protection During Sex? No Information not available 02/24/2017 Are You Sexually Active? Yes Piotr [email or web address] Information not available 04/22/2024 At What Age Did You Start Smoking Tobacco? 0 Information not available 03/06/2018 Are You Passively Exposed To Smoke? No Information not available 02/22/2016 Do You Or Have You Ever Used Smokeless Tobacco? Never Used Smokeless Tobacco Information not available 09/09/2019 How Much Tobacco Do You Smoke? No Information not available 02/24/2017 Do You Use Any Illicit Or Recreational Drugs? No Information not available 03/19/2021 Do You Use Sunscreen Routinely? Yes Information not available 02/22/2016 How Many Years Have You Smoked Tobacco? 0 Information not available 03/06/2018 Do You Or Have You Ever Used Any Other Forms Of Tobacco Or Nicotine? No Information not available 03/19/2021 Sex: Unknown Functional Status Question Answer Note LastModified by Organizat ion Details LastModified Time Are you able to walk? YESWOREST Information not available 03/19/2021 Are you able to care for yourself? Yes Information not available 02/22/2016 What is your exercise level? Occasional [email or web address] Information not available 02/22/2016 Mental Status None recorded. Family History Relationship Description Onset Age of this Age Resolved Age Notes LastModified by Organization Details LastModified Time Father Heart disease 65 [email or web address] Not available 02/21 14:27:34 Paternal Uncle Heart disease [email or web address] Not available 02/21 14:27:34 Mother Hypertensive disorder 92 [email or web address] Not available 02/21 14:27:34 Mother Hypothyroidi sm [email or web address] Not available 2020 15:26:17 Medical History Condition Response Hypothyroidism Y Obesity Y Kidney Disease Y Hypertension Y Gynecological History Statement/Question Response Date of Last Colonoscopy 02/16/2021 Most Recent Bone Density 01/26/2016 Menses Monthly N Date of Last Pap Smear 10/04/2017 Sexual Problems? N Current Control Method None Most Recent Mammogram 10/25/2023 Age at First Child 2 LMP Unknown Desired Control Method N/A Obstetrics History GPAL:G 0 P 0 0 0 0 Type Value Living 0 Total 0 Immunizations Vaccine Type Date Status Note Provider Name and Address Organization Details Recorded Time COVID-19, mRNA, LNP-S, PF, 30 mcg/0.3 mL dose 021 completed FRANCIA Hernandez [facility] 2024 15:05:36 COVID-19, mRNA, LNP-S, PF, 30 mcg/0.3 mL dose 021 completed FRANCIA Hernandez [facility] 2024 15:05:36 zoster recombinant 020 completed FRANCIA Sunshine, FRANCIA - [facility] 03/19/2021 15:40:38 Tdap 016 completed FRANCIA Hernandez, FRANCIA [facility] 2024 15:05:36 Influenza, split virus, quadrivalent, PF 017 cancelled patient objection Not Available [facility] 09/11/2019 02:22:08 zoster recombinant 018 cancelled patient objection Not Available [facility] 09/11/2019 02:22:17 Pneumococcal conjugate PCV 13 018 cancelled patient objection Not Available [facility] 09/11/2019 02:21:38 pneumococcal polysaccharide PPV23 019 cancelled patient objection Not Available [facility] 09/11/2019 02:21:28 zoster recombinant 019 cancelled patient objection Not Available [facility] 09/11/2019 02:22:20 Past Encounters Encounter ID Performer Location Encounter Start Date Encounter Closed Date Diagnosis/Indication Diagnosis SNOMED-CT Code Diagnosis ICD10 Code Diagnosis Note [id number] Aamir Gomez MD Main Office [address] [place] [address] 02/22/2016 13:33:42 02/22/2016 14:52:15 Adult health examination 508884665 Z00.01 Immunizati on status updated, will screen based on risk factors. Regular dental and ophtho care advised as well as seat belt and sunscreen use. Distracted driving discussed. Advance directives in place. Body mass index 30+ - obesity 735442376 Z68.30 Abnormal vision 7896380 H54.7 Has ophtho appt scheduled today. Hypertensive disorder 38 307659 I10 Hypothyroidism 81702039 E03.9 Administra tion of diphtheria, pertussis, and tetanus vaccine 877654009 Z23 [id number] Aamir Gomez MD Main Office [address] [facility] [address] [place] [address] 08/30/2016 14:52:46 08/30/2016 16:08:08 Hypercholesterolemia 07194561 E78.01 Based on current CV risk score, statin therapy is not warranted. Will monitor. TLC advised. Hypothyroidism 72670571 E03.9 Clinically and biochemica lly euthyroid. Will continue current dose. Hypertensive disorder 38 495135 I10 Fair control. Will continue current regimen for now. Liver enzy mes level above reference range 558172856 R74.8 Start with imaging. If no evidence of SILVA will need GI eval. Hypokalemia 62356713 E87 .6 ? RTA. Will ask renal for help with establishi ng diagnosis. Metabolic acidosis 68235 009 E87.2 Recurrent anxiety 642790 001 F41.9 Will monitor PRN anxiolytic use and discuss daily rx if frequently using. [id number] Aamir Gomez MD Main Office [address] [facility] [address] [place] [place] [address] 11/20/2016 15:09:39 11/20/2016 16:25:57 Liver enzymes level above reference range 911225698 R74.8 Awaiting imaging and remainder of GI evaluation results. Hypertensive disorder 38 701894 I10 Fair control. Will continue current regimen for now. Hypokalemia 71337121 E87 .6 Await completion of renal evaluation . Hypothyroidism 23320670 E03.9 Clinically and biochemica lly euthyroid. Will continue current dose. [id number] Katja Aguilar Main Office [address] [facility] [address] [place] [address] 02/24/2017 08:51:20 02/24/2017 09:51:29 Adult health examination 831779889 Z00.00 Immunizati on status updated, flu advised in the Fall. Will screen based on risk factors. Regular dental and ophtho care advised as well as seat belt and sunscreen use. Distracted driving discussed. Advance directives in place. 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 Needs Dr. Wilkins's new address. Body mass index 30+ - obesity 042243134 Z68.30 E66.9 Liver enzy mes level above reference range 923922032 R74.8 Will re-request GI notes and imaging/la b reports done at [place]. Hypercholesterolemia 136 45592 E78.01 Based on current CV risk score, statin therapy is not warranted. Will monitor. TLC advised. Vitamin D deficiency 347 41582 E55.9 Will verify adequate daily dosing. Hypertensive disorder 38 335264 I10 Hypothyroidism 03912171 E03.9 Clinically and biochemica lly euthyroid. Will continue current dose. Hypokalemia 84249600 E87 .6 Stable with potassium supplement . Recurrent anxiety 015080 001 F41.9 Will monitor PRN anxiolytic use and discuss daily rx if frequently using. Eczema 60240930 L30.9 Has f/u with derm in the Fall. Requesting refill in meantime. Irritable bowel syndrome 95481086 K58.9 Stable on meds, followed by GI. [id number] Aamir Gomez MD Main Office [address] [facility] [address] [place] [address] 08/11/2017 08:59:53 08/11/2017 11:37:55 Immunization refused 553345822 Z28.21 Acute sinusitis 18294777 J01.90 [id number] Aamir Gomez MD Main Office [address] [facility] [address] [place] [address] 03/06/2018 14:09:50 03/06/2018 15:09:15 Adult health examination 086983641 Z00.00 Immunizati on status utd, flu advised in the Fall, and Shingrix via local pharmacy. Will screen based on risk factors. Regular dental and ophtho care advised as well as seat belt and sunscreen use. Distracted driving discussed. Advance directives in place. Varicella vaccination 68 032916 Z23 Administra tion of pneumococcal vaccine 18713261 Z23 Liver enzy mes level above reference range 644176859 R74.8 Will re-request GI notes and imaging/la b reports done at [place]. 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 Needs Dr. Wilkins's new address. Hypercholesterolemia 136 30546 E78.01 Based on current CV risk score, statin therapy is not warranted. Will monitor. TLC advised. Hypothyroidism 36090614 E03.9 Clinically and biochemica lly euthyroid. Will continue current dose. Body mass index 30+ - obesity 184118449 E66.9 Z68.32 Hypertensive disorder 38 337099 I10 Vitamin D deficiency 347 60618 E55.9 Will verify adequate daily dosing. Anxiety 58798664 F41.9 Using PRN anxiolytic sparingly. Rx refilled. Obesity 633719322 E66.9 [id number] Aamir Gomez MD Main Office [address] [facility] [address] [place] [address] 08/28/2018 13:16:42 08/28/2018 13:58:09 Chronic sinusitis 25115747 J32.9 Not sure that current symptoms suggest a bacterial process more likely allergic. Will add nasal steroid and call if not slowly improving or worse. [id number] Aamir Gomez MD Main Office [address] [facility] [address] [place] [address] 03/12/2019 14:12:15 03/12/2019 15:18:29 Adult health examination 546764643 Z00.00 Immunizati on status utd, flu advised in the Fall, and Shingrix via local pharmacy. Will screen based on risk factors. Regular dental and ophtho care advised as well as seat belt and sunscreen use. Distracted driving discussed. Advance directives in place. Administra tion of pneumococcal vaccine 79992502 Z23 Varicella vaccination 68 301707 Z23 Allergic r eaction to insect bite 429275246 T78.40XA Not obviously infected. Will see if topical cortisone helps. Call with advancing swelling/e rythema. Chronic sinusitis 634189 00 J32.9 Not sure that current symptoms suggest a bacterial process more likely allergic. Will add nasal steroid and call if not slowly improving or worse. Anxiety 28062992 F41.9 Using PRN anxiolytic sparingly. Rx refilled. Hypothyroidism 42912540 E03.9 Clinically and biochemica lly euthyroid. Will continue current dose. Hypertensive disorder 38 159349 I10 Fair control, renal following as well. Will follow on current regimen and increase ARB dose if still >130/90 at f/u. Liver enzy mes level above reference range 826135202 R74.[address] Rosa as well. 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 Hypercholesterolemia 136 52901 E78.01 Based on current CV risk score, statin therapy is not warranted. Will reassess. TLC advised. Vitamin D deficiency 347 98003 E55.9 Will verify adequate daily dosing. Obesity 296617556 E66.9 [id number] Lee Oconnor PA-C Main Office [address] [place] [address] [place] [address] 08/16/2019 11:32:51 08/16/2019 12:36:36 Fever 588780038 R50.9 Cough 93485536 R05 Pneumonia 249956430 J18. 9 suspicious for pna - was rx'd 3 wks ago c doxy & pred - will foreign exchange trader to zpak, and check labs to r/o dehydratio n - call in 48 hours if no sig improvemen t - consider levaquin rec probiotics while on abx Gitelman syndrome 900356 004 N25.89 cont f/u c renal, will check mag level as well (cc: renal) [id number] Aamir Gomez MD Main Office [address] [address] [place] [address] 09/09/2019 15:21:16 09/09/2019 16:23:04 Hypertensive disorder 81628687 I10 Well controlled , renal following as well. Will follow on current regimen. Hypothyroidism 60284016 E03.9 Clinically and biochemica lly euthyroid. Will continue current dose. Right uppe r zone pneumonia 063968329 J18.1 Pt will arrange for follow up imaging. Irritable bowel syndrome 94185492 K58.9 Using PRN anxiolytic sparingly for severe IBS flares. Rx refilled. [id number] Aamir Gomez MD Main Office [address] [address] [place] [address] 03/17/2020 14:02:44 03/17/2020 15:12:25 Adult health examination [id number] Z00.00 Immunizati on status utd, flu advised in the Fall, and Shingrix via local pharmacy. Will screen based on risk factors. Regular dental and ophtho care advised as well as seat belt and sunscreen use. Distracted driving discussed. Advance directives in place. Allergic r eaction to insect bite 152450491 T78.40XA ? eczema. Intermitte nt topical therpay is helping. Rx renewed. Screening for malignant neoplasm of breast 249215274 Z12.39 Screening for malignant neoplasm of colon 627814665 Z12.11 Seeing GI, colonoscop y to be scheduled in the Fall. Screening for malignant neoplasm of cervix 896093956 Z12.4 Cervical cancer screening utd. Hepatitis C screening 41 4985860 Z11.59 Environmental allergy 42 3752898 T78.49XA Hypertensive disorder 38 878192 I10 Well controlled , renal following as well. Will follow on current regimen. Hypokalemia 24465327 E87 .6 Stable with potassium supplement . Irritable bowel syndrome 09142393 K58.0 Using PRN anxiolytic sparingly for severe IBS flares. Rx refilled. Vitamin D deficiency 347 76403 E55.9 Will verify adequate daily dosing. Gitelman syndrome 968427 004 N25.89 Following with renal. Hypothyroidism 40754408 E03.9 Clinically and biochemica lly euthyroid. Will continue current dose. Body mass index 30+ - obesity 038854889 E66.9 Z68.32 Varicella vaccination 68 724042 Z23 Cramp in lower limb 4499 57504 R25.2 [id number] Brendon Martínez MD [facility] [address] [facility] [address] [place] [address] 03/31/2020 13:27:29 04/03/2020 08:21:14 Varicose veins of lower extremity 56749149 I83.892 [id number] Aamir Gomez MD [facility] [address] [facility] [address] [place] [address] 07/08/2020 17:09:51 07/10/2020 11:17:14 Acute sinusitis 86976742 J01.90 Rx provided given presence of fever and significan t sinus symptoms. Pt also advised that she needs to isolate and have COVID 19 testing done. If fever persists/w orsens or testing is positive knows to continue isolation for 10 days after fever resolves and if symptoms are improving. Counseling 371644927 Z71 .9 Health advice, education or counseling done for COVID 19. State link with currently available testing locations discussed/ given. Will go to [facility] testing site tomorrow and call for [facility] test on Friday if unable to obtain on Friday. [id number] Aamir Gomez MD Main Office [address] [facility] [address] [place] [address] 10/24/2020 15:25:38 10/24/2020 16:17:38 Hypothyroidism 82526010 E03.9 Clinically and biochemica lly euthyroid. Will continue current dose. Hypertensive disorder 38 410823 I10 Well controlled , renal following as well. Will follow on current regimen. Irritable bowel syndrome 29233180 K58.0 Using PRN anxiolytic sparingly for severe IBS flares. Rx refilled. Varicose v eins of lower extremity 51601962 I83.893 Liver enzy mes level above reference range 847548873 R74.[address] Rosa as well. Needs labs and states that she will go this weekend. [id number] Aamir Gomez MD Main Office [address] [facility] 207 [place] [address] 03/19/2021 15:05:41 03/19/2021 16:27:39 Adult health examination 847726338 Z00.00 Immunizati on status utd, flu advised in the Fall, and Shingrix via local pharmacy. Will screen based on risk factors. Regular dental and ophtho care advised as well as seat belt and sunscreen use. Distracted driving discussed. Advance directives in place. Hypertensive disorder 38 185609 I10 Well controlled , renal following as well. Will follow on current regimen. Hypothyroidism 48525334 E03.9 Clinically and biochemica lly euthyroid. Will continue current dose. Screening for malignant neoplasm of breast 542870499 Z12.39 Screening for malignant neoplasm of cervix 533670623 Z12.4 Cervical cancer screening utd. Rosacea 685611728 L71.9 Varicose v eins of lower extremity 43954633 I83.[address] Jeffery Irritable bowel syndrome 39956271 K58.0 Using PRN anxiolytic sparingly for severe IBS flares. Rx refilled. Hypokalemia 48829658 E87 .6 Stable with potassium supplement . Labs utd and has follow up scheduled with renal. 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 Following with renal. Body mass index 30+ - obesity 518754046 E66.9 Z68.33 Venous ins ufficiency of leg 668783698 I87.[address] Jeffery. Recent test results and mgmt options discussed. [id number] Aamir Gomez MD Main Office [address] [facility] 207 [facility] [place] [address] 09/11/2021 14:46:06 09/11/2021 15:29:40 Hypothyroidism 69364792 E03.9 Clinically and biochemica lly euthyroid. Will continue current dose. Hypertensive disorder 38 400611 I10 Well controlled , renal following as well. Will follow on current regimen. Liver enzy mes level above reference range 619511968 R74.[address] Rosa as well. Needs labs and states that she will go this weekend. Hypokalemia 70309262 E87 .6 Stable with potassium supplement . Due for labs before she has follow up scheduled with renal. Irritable bowel syndrome 77895212 K58.0 Using PRN anxiolytic sparingly for severe IBS flares. Rx refilled. [id number] Aamir Gomez MD Main Office [address] [facility] [address] [facility] [place] [address] 04/04/2022 13:51:37 04/04/2022 15:09:04 Adult health examination 085142862 Z00.00 Immunizati on status utd, flu advised in the Fall, and Shingrix via local pharmacy. Will screen based on risk factors. Regular dental and ophtho care advised as well as seat belt and sunscreen use. Distracted driving discussed. Advance directives in place. Hypercholesterolemia 136 76612 E78.01 Based on current CV risk score, statin therapy is not warranted. Will reassess. TLC advised. Hypertensive disorder 38 698895 I10 Well controlled , renal following as well. Will follow on current regimen. Screening for malignant neoplasm of breast 759546853 Z12.39 Screening for malignant neoplasm of cervix 813125275 Z12.4 Cervical cancer screening utd. Screening for malignant neoplasm of colon 349987075 Z12.11 Screening utd, due in 2030 unless issues arise in the meantime. Hypothyroidism 25066622 E03.9 Clinically and biochemica lly euthyroid. Will continue current dose. Rosacea 486656020 L71.9 Gitelman syndrome 624476 004 N25.89 On appropriat e medical regimen. Following with renal. Metabolic acidosis 39184 009 E87.2 Liver enzy mes level above reference range 858772856 R74.[address] Rosa as well. Needs labs and states that she will go this weekend. Body mass index 30+ - obesity 714674064 E66.9 Z68.33 Hypomagnesemia 850483416 E83.42 Varicose v eins of lower extremity 13814653 I83.893 Pt is still pursuing vascular options. She is looking into a place in [place]. She will call for referral if needed. Irritable bowel syndrome 50522852 K58.0 Using PRN anxiolytic sparingly for severe IBS flares. Rx refilled. [id number] JEWEL FERRO MD Main Office [address] [facility] 207 [facility] [place] [address] 09/28/2022 11:10:07 09/28/2022 11:39:26 Acute sinusitis 23730810 J01.90 - pt complainin g of productive cough, frontal headaches, congestion , nasal discharge and low-grade fever- pt given antibiotic treatment due to low grade and significan t sinus symptoms- to help with the cough, medication was provided- Tylenol OTC, not to exceed package insert for pain or fever q4-6h advised prn. Counselled on not exceeding more than 3g/day.- Throat Lozenges otc prn for sore throat- saltwater gargle- adequate hydration enforced- saline sprays- humidifier use enforced.- RTC if no improvemen t [id number] Aamir Gomez MD Main Office [address] [facility] 207 [place] [address] 10/21/2022 15:15:02 10/21/2022 16:14:17 Hypomagnesemia 402380235 E83.42 On supplement will reassess Hypertensive disorder 38 313994 I10 Well controlled , renal following as well. Will follow on current regimen. Hypokalemia 27985811 E87 .6 Stable with potassium supplement . Due for labs before she has follow up scheduled with renal. Irritable bowel syndrome 73643683 K58.0 Using PRN anxiolytic sparingly for severe IBS flares. Rx refilled. Acute sinusitis 76212276 J01.90 Sounds like a partially treated sinusitis. Given allergy profile will cover with quinolone. If symptoms persist may need imaging steroid trial. [id number] Andrei Diop MD Main Office [address] [facility] [address] [facility] [place] [address] 11/23/2022 10:50:25 11/23/2022 11:25:50 Acute frontal sinusitis 94820796 J01.10 She will continue with current nasal sprays and antihistam jaziel. She was advised to start the levaquin which she filled but did not start. I also advised her to search for another ENT to see if she can get a sooner appointmen t. We will get a sinus CT scan to evaluate for any blockage. [id number] Aamir Gomez MD Main Office [address] [facility] [address] [facility] [place], [place] [address] 04/07/2023 15:13:39 04/07/2023 16:28:00 Adult health examination 708596585 Z00.00 COVID booster, Shingrix and PCV20 advised via local pharmacy as well as flu when available. Will screen based on risk factors. Regular dental and ophtho care advised as well as seat belt and sunscreen use. Distracted driving discussed. Advance directives in place. Irritable bowel syndrome 46724826 K58.0 Using PRN anxiolytic sparingly for severe IBS flares. Rx refilled. Hypercholesterolemia 136 49575 E78.01 Based on current CV risk score, statin therapy is not warranted. Will reassess. TLC advised. Hypertensive disorder 38 101411 I10 Well controlled , renal following as well. Will follow on current regimen. Screening for malignant neoplasm of breast 798965485 Z12.39 Screening for malignant neoplasm of cervix 170775157 Z12.4 Cervical cancer screening utd. Screening for malignant neoplasm of colon 765565020 Z12.11 Screening utd, due in 2030 unless issues arise in the meantime. Hypothyroidism 27338077 E03.9 Clinically and biochemica lly euthyroid. Will continue current dose. Gitelman syndrome 449997 004 N25.89 On appropriat e medical regimen. Following with renal. Liver enzy mes level above reference range 651769286 R74.[address] Rosa as well. Needs labs and states that she will go this weekend. Body mass index 30+ - obesity 888158726 E66.9 Z68.33 Hypomagnesemia 660550112 E83.42 On supplement will reassess Varicose v eins of lower extremity 65260941 I83.893 Pt is still pursuing vascular options. She will call for referral if needed. Varicella vaccination 68 018921 Z23 Administra tion of pneumococcal vaccine 80669275 Z23 Bone density finding 385 694483 M85.80 Due for routine screening. Muscle pain 59238637 M79 .10 Proximal thigh muscle weakness could be metabolic vs autoimmmun e vs neurogenic vs infectious . Will see what labs show and go from there. Vitamin D deficiency 347 32490 E55.9 Will verify adequate daily dosing. [id number] Lee Oconnor PA-C Main Office [address] [facility] [address] [facility] [place] [address] 06/25/2023 08:49:50 06/25/2023 09:28:51 Acute sinusitis 53005187 J01.90 tolerated levaquin back in 2.23 - will rx c thisrecomm end probiotics while on abx Viral uppe r respiratory tract infection 041647476 J06.9 acute onset of sxs last friday c fever/myal gias suggestive she may have had flu - last fever 3 days ago, now on day 6 so is well beyond 48 hour window to rx flu - believe has bacterial infxn settling into her sinuses as is having pur nasal dc past 2 days c sinus kruse -- see below [id number] Aamir Gomez MD Main Office [address] [facility] [address] [facility] [place] [address] 10/09/2023 15:22:56 10/09/2023 16:30:45 Liver enzymes level above reference range 590266376 R74.[address] Rosa as well. Needs labs and states that she will go this weekend. Gitelman syndrome 655702 004 N25.89 On appropriat e medical regimen. Following with renal, and having labs done this weekend. Irritable bowel syndrome 62550142 K58.0 Using PRN anxiolytic sparingly for severe IBS flares. Rx refilled. Reports that dicyclomin e was used in the past for spasm but has not used it in awhile. Explained that my concern is the risk for ulceration with concomitan t KCL supplement ation. Defer to Dr. Rosa regarding appropriat eness who she is seeing next month. Hypomagnesemia 063890363 E83.42 On supplement will reassess Hypothyroidism 83478346 E03.9 Clinically and biochemica lly euthyroid. Will continue current dose. Hypertensive disorder 38 194885 I10 Well controlled , renal following as well. Will follow on current regimen. [id number] Aamir Gomez MD Main Office [address] [place] [address] 04/22/2024 15:11:13 04/22/2024 16:26:28 Adult health examination 092632690 Z00.00 COVID/flu boosters, Shingrix and PCV20 advised via local pharmacy. Will screen based on risk factors. Regular dental and ophtho care advised as well as seat belt and sunscreen use. Distracted driving discussed. Advance directives in place. Administra tion of pneumococcal vaccine 13174389 Z23 Irritable bowel syndrome 05180828 K58.0 Using PRN anxiolytic sparingly for severe IBS flares. Rx refilled. Hypercholesterolemia 136 55630 E78.01 Based on current CV risk score, statin therapy is not warranted. Will reassess. TLC advised. Body mass index 30+ - obesity 785114974 E66.9 Z68.32 Hypertensive disorder 38 920922 I10 Well controlled , renal following as well. Will follow on current regimen. Screening for malignant neoplasm of breast 544583448 Z12.39 Screening for malignant neoplasm of cervix 829164481 Z12.4 Cervical cancer screening utd. Screening for malignant neoplasm of colon 996843333 Z12.11 Screening utd, due in 2030 unless issues arise in the meantime. Hypothyroidism 30302922 E03.9 Clinically and biochemica lly euthyroid. Will continue current dose. Gitelman syndrome 524996 004 N25.89 On appropriat e medical regimen. Following with renal. Liver enzy mes level above reference range 034563106 R74.[address] Rosa as well. Needs labs and states that she will go this weekend. Hypomagnesemia 606028673 E83.42 On supplement will reassess Varicose v eins of lower extremity 28056863 I83.893 Pt is still pursuing vascular options. She will call for referral if needed. Varicella vaccination 68 217222 Z23 Bone density finding 385 121604 M85.80 Due for routine screening. Vitamin D deficiency 347 57922 E55.9 Will verify adequate daily dosing. Acute sinusitis 86932080 J01.90 Duration and quality of symptoms along with exam findings raises concern for bacterial process. Given allergy profile will cover with azithro which she reports being effective consistent ly in the past. If symptoms persist may need imaging vs steroid trial vs broader coverage. [id number] Aamir Gomez MD Main Office [address] [facility] [address] [facility] [place] [address] 2024 14:56:21 2024 15:51:38 Gitelman syndrome 500978116 N25.89 On appropriat e medical regimen. Following with renal. Hypercholesterolemia 136 19144 E78.01 Based on current CVD risk score, statin therapy is not warranted. Will reassess. TLC advised. Hypertensive disorder 38 560013 I10 Well controlled , renal following as well. Will follow on current regimen. Hypothyroidism 85676840 E03.9 Clinically and biochemica lly euthyroid. Will continue current dose. Rosacea 477932357 L71.9 Irritable bowel syndrome 16567384 K58.0 Using PRN anxiolytic sparingly for severe IBS flares. Rx refilled. Health Concerns Section Related Observation LastModified by Organization Detai ls LastModified Time None Recorded Concern Status LastModified by Organization Details LastModified Time None Recorded Advance Directives Directive Y: HCP/ -Piotr Payers Encounter Date Sequence Insurance Name Policy Number Policy Pearl Covered Member ID Pearl Member ID Guarantor Name 04/07/2023 1 [facility] (O) [id number] Deborah B Inna [id number] Deborah B Inna 06/25/2023 1 [facility] (PPO) [id number] Deborah B Inna [id number] Deborah B Inna 10/09/2023 1 [facility] (PPO) [id number] Deborah B Inna [id number] Deborah B Inna 04/22/2024 1 [facility] (PPO) [id number] Deborah B Inna [id number] Deborah B Inna 2024 1 [facility] (O) [id number] Deborah B Inna [id number] Deborah B Inna Notes Date Note Type Note Provider Name and Address Organization Details Recorded Time 3 text/htm l Generic HPI TemplateReported bypatient.Notes:Here for a physical, feels well. Seeing dentist and ophtho regularly. Aamir Gomez MD [address] [address], [place], [address] [facility] [place] 17:10:23 3 text/htm l Covid negative this morning prior to this visit. Symptoms began last Friday. Current Sx: Body aches, headaches, nasal congestion, mild productive cough, on and off fevers daily since last Friday ranging from 99.8 to 101, Confirmed no sore throat today or pain. OTC Tylenol day 6 of sxs, minimal improvement, last fever on friday, myalgias/fever better p tylenol but still feels fatigued, has more head > chest congestion, no sob, no tooth pain but + sinus pain & + pur nasal dc == rev chart - last had sinusitis back in 2.23 - rx'd c levaquin, tolerated well Lee Oconnor PA-C [address] [facility] [address], [place], [address] [facility] [place]/25/[place]23 09:39:08 4 text/htm l Abnormal Liver TestsReported bypatient.Severity:AST:29; ALT:37; Total Bilirubin: 0.8; Alkaline Phosphatase: 177; GGT: 173 Onset/Timing:noted on routine blood work Associated Symptoms:no jaundice; no RUQ abdominal painNotes:Following with Dr. Rosa. Due for labs. States that she has had this issue for a very long time and even had biopsy done at [facility] long ago and told that she had fatty liver disease. U/S done in 2017 did not suggest fatty liver disease.Hypertension F/UReported bypatient.Associated Symptoms:no dizziness; no lightheadedness; no chest pain; no palpitations; no edema Lifestyle:not exercising regularly Medications:taking medications as directed; no side effects from medicationNotes:Had hypokalemia and metabolic acidosis on labs. Being managed by for Gittlemans syndrome.ThyroidReported bypatient.Quality:not changing Onset/Timing:gradual Context:normal thyroid levels Aamir Gomez MD [address] [address], [place], [address], [facility] [place] 10/09/2023 16:59:00 4 text/htm l Generic HPI TemplateReported bypatient.Notes:Here for a physical, feels well. Seeing dentist and ophtho regularly. Aamir Gomez MD [address] [address], [place], [address], [facility] [place] 04/22/2024 16:29:16 5 text/htm l Abnormal Liver TestsReported bypatient.Severity:AST:33; ALT:40; Total Bilirubin: 0.7; Alkaline Phosphatase: 124; GGT: 85 Onset/Timing:noted on routine blood work Associated Symptoms:no jaundice; no RUQ abdominal painNotes:Following with Dr. Rosa. Due for labs. States that she has had this issue for a very long time and even had biopsy done at [facility] long ago and told that she had fatty liver disease.Hypertension F/UReported bypatient.Associated Symptoms:no dizziness; no lightheadedness; no chest pain; no palpitations; no edema Lifestyle:not exercising regularly Medications:taking medications as directed; no side effects from medicationNotes:Had hypokalemia and metabolic acidosis on labs. Being managed by for Gittlemans syndrome. Had labs done yesterdayThyroidReported bypatient.Quality:not changing Onset/Timing:gradual Context:normal thyroid levelsNotes:Had thyroid labs done Aamir Gomez MD [address] [address], [place], [address], [facility] [place] 2024 15:50:06 OBGyn Episode No OBEpisode recorded.
--- OUTSIDE RECORDS SUMMARY | 2024-11-04 07:39 | XMS_ITS | Clinical Summary ---
Author Organization [facility] [place] [place], Address [address] [place] [address] Phone Care Team Providers Care Peer Support Specialist Name Role Phone Aamir Martinez MD Primary Care Provider [phone] Allergies Active Allergy Reactions Criticality Noted Date Comments Bacitracin Other (see comments) 02/13/2021 Penicillins Hives,Other (see comments) 06/01/20 20 Sulfa Antibiotics Hives,Other (see comments) Medications alosetron (LOTRONEX) 1 MG tablet 2 (two) times a day Active levothyroxine (SYNTHROID, LEVOTHROID) 88 MCG tablet at bed time 7 Active LORazepam (ATIVAN) 0.5 MG tablet lorazepam 0.5 mg tablet TAKE 1 TABLET BY MOUTH EVERY DAY NEEDED Active losartan (COZAAR) 50 MG tablet at bed time 9 Active Magnesium Chloride (MAG64 PO) Slow-Mag 1 tab oral daily Active spironolactone (ALDACTONE) 25 MG tablet TAKE 1 TABLET BY MOUTH 1 TIME EACH DAY. 90 tablet 3 4 Active aMILoride (MIDAMOR) 5 MG tablet TAKE 3 TABLETS (15 MG TOTAL) BY MOUTH IN THE MORNING AND 3 TABLETS (15 MG TOTAL) IN THE EVENING. 540 tablet 3 4 Active Active Problems Problem Noted Date Diagnosed Date Hypomagnesemia 06/01/2020 Hypertensive disorder 06/01/2020 Diverticular disease 06/01/2020 Hypothyroidism 06/01/2020 Vitamin D deficiency 02/24/2017 Gitelman syndrome 02/24/2017 Hypokalemia 08/29/2016 Metabolic acidosis 08/29/2016 Hypercholesterolemia 08/29/2016 Encounters Date Type Department Care Team Description 10/01/2024 Orders Only [facility] [place], [address] [place] [address] Regulo Lynn DO Hypomagnesemia; Hypokalemia; Hypertensive disorder; Gitelman syndrome 09/24/2024 Orders Only [facility] [address] [place] [address] Regulo Lynn DO Gitelman syndrome; Hypomagnesemia; Hypokalemia; Hypertensive disorder from Last 3 Months Immunizations Name Administration Dates Next Due Pfizer SARS-COV-2 01/05/2021,12/15/2020 Tdap 02/22/2016 Family History Medical History Relation Comments Heart disease Father and uncle Hypertension Mother Heart disease Sibling paternal uncle Relation Status Comments Father Mother Sibling Social History Tobacco Use Types Packs/Day Years Used Date Smoking Tobacco: Never Alcohol Use Standard Drinks/Week Comments Yes 0 (1 standard drink = 0.6 oz pure alcohol) Alcoholic Drinks/day: Occasional social drink Comments Unknown Sex and Gender Information Value Date Recorded Sex Assigned at Not on file Legal Sex Female 4:36 PM EST Gender Identity Not on file Sexual Orientation Not on file Last Filed Vital Signs Vital Sign Reading Time Taken Comments Blood Pressure 120/60 06/04/2024 3:41 PM EDT Pulse 72 06/04/2024 3:41 PM EDT Temperature - - Respiratory Rate - - Oxygen Saturation - - Inhaled Oxygen Concentration - - Weight 84.8 kg (187 lb) 07/29/2019 12:00 PM EST Height 165.1 cm (5' 5 ) 07/29/2019 12:00 PM EST Body Mass Index 31.12 07/29/2019 12:00 PM EST Plan of Treatment Upcoming Encounters Date Type Department Care Team (Late st Contact Info) Description 12/03/2024 3:00 PM EDT Office Visit [facility], [address] [place] [address] Regulo Lynn, [address] [facility] [place] [address] 06/03/2025 4:00 PM EDT Office Visit [facility], [address] [place] [address] Regulo Lynn DO [address] [place] [address] Health Maintenance Due Date Last Done Comments Breast Cancer Screening 1955 Pneumococcal Vaccine: 65+ Ye ars (1 of 2 - PCV) 1963 Colorectal Cancer Screening: Annual FOBT 2006 Colorectal Cancer Screening: Colonoscopy 2006 Colorectal Cancer Screening: Sigmoidoscopy 2006 Influenza Vaccine (#1) 2024 Hepatitis B Vaccine Aged Out No longe r eligible based on patient's age to complete this topic Procedures Procedure Name Priority Date/Time Associated Diagnosis Comments MAGNESIUM Routine 10/18/2024 12:23 PM EST Gitelman syndrome Hypomagnesemia Hypokalemia Hypertensive disorder RENAL FUNCTION PANEL Routine 10/18/2024 12:23 PM EST Gitelman syndrome Hypomagnesemia Hypokalemia Hypertensive disorder from Last 3 Months Results * (ABNORMAL) Magnesium (10/18/2024 12:23 PM EST) Magnesium 1.4(L) 1.6 - 2.3 mg/dL [facility] [place] Blood (Blood, Venous) 10/18/2024 12:23 PM EST 10/18/2024 us Regulo Lynn DO LAB BLOOD ORDERABLES Final Resu lt [facility] [place] [address] [place] [address] * Renal Function Panel (10/18/2024 12:23 PM EST) Glucose 88 70 - 99 mg/dL [facility] [place] BUN 19 8 - 27 mg/dL [facility] [place] Creatinine 0.94 0.57 - 1.00 mg/dL [facility] [place] eGFR CKD-EPI CR 2020 67 >59 mL/min/1.7 3 [facility] [place] BUN/Creatinine Ratio 20 12 - 28 [facility] Sodium 138 134 - 144 mmol/L [facility] [place] Potassium 3.9 3.5 - 5.2 mmol/L [facility] [place] Chloride 96 96 - 106 mmol/L [facility] [place] Bicarbonate (CO2) 24 20 - 29 mmol/L [facility] [place] Calcium 9.9 8.7 - 10.3 mg/dL [facility] [place] Albumin 4.5 3.9 - 4.9 g/dL [facility] Phosphorus 3.8 3.0 - 4.3 mg/dL [facility] [place] Blood (Blood, Venous) 10/18/2024 12:23 PM EST 10/18/2024 us Regulo Lynn DO LAB BLOOD ORDERABLES Final Resu lt [facility] [place] [address] [place] [address] from Last 3 Months Insurance [facility] Care Teams Peer Support Specialist Relationship Specialty Start Date End Date Aamir Martinez MD [address] [facility] [address] [place] [address] PCP - General 06/29/19
--- OUTSIDE RECORDS SUMMARY | 2024-11-04 07:39 | XMS_ITS | Encounter Summary ---
Author Organization [facility] [place], Address [address] [place] [address] Phone Care Team Providers Care Ultrasonic Seaming Machine Operator Name Role Phone Aamir Martinez MD Primary Care Provider [phone] Encounter Details Date Type Department Care Team (Late st Contact Info) Description 09/12/2023 Orders Only [facility] [address] [place] [address] Regulo Lynn DO [address] [place] [address] Gitelman syndrome; Hypertensive disorder; Hypomagnesemia; Hypokalemia [...] Visit [facility] [address] [place] [address] Regulo Lynn DO [address] [place] [address] 06/03/2025 4:00 PM EDT Office Visit [facility] [address] [place] [address] Regulo Lynn DO [address] [place], [place] [address] documented as of this encounter Procedures Procedure Name Priority Date/Time Associated Diagnosis Comments MAGNESIUM Routine 10/12/2023 11:56 AM EST Gitelman syndrome Hypertensive disorder Hypomagnesemia Hypokalemia RENAL FUNCTION PANEL Routine 10/12/2023 11:56 AM EST Gitelman syndrome Hypertensive disorder Hypomagnesemia Hypokalemia documented in this encounter Results * (ABNORMAL) Magnesium (10/12/2023 11:56 AM EST) Pathologist [facility] Magnesium 1.2(L) (1.6-2.3) mg/dL [facility] Comment: Testing performed or reported by [facility], a Service of [facility], [address] [place] [address] Dixon Sim MD, Furnace Erector [facility]# [id number] Blood (Blood, Venous) 10/12/2023 11:56 AM EST 10/12/2023 11:57 AM EST Regulo Lynn DO LAB BLOOD ORDERABLES Final Resu lt [facility] * Renal Function Panel (10/12/2023 11:56 AM EST) Glucose 94 (70-99) MG/DL [facility] BUN 16 (8-23) MG/DL [facility] Creatinine 0.9 (0.5-1.0) MG/DL [facility] Sodium 136 (133-145) MMOL/L [facility] Potassium 4.2 (3.6-5.2) MMOL/L [facility] Chloride 99 (98-107) MMOL/L [facility] Bicarbonate (CO2) 24 (22-29) MMOL/L [facility] Anion Gap 13 (4-17) [facility] Albumin 4.0 (3.4-4.8) GM/DL [facility] Calcium 9.4 (8.6-10.5) MG/DL [facility] Phosphorus, Serum 2.8 (2.5-4.5) MG/DL [facility] Est GFR Non 72 ML/MIN/1.7 3 M2 [facility] Comment: Creatinine based estimated glomerular filtration (eGFR) in adults is calculated using the National Kidney [employer] recommended 2020 CKD-EPI equation. Estimates GFR from serum creatinine, age and sex. Testing performed or reported by [facility], a Service of [facility], [address] [place] [address] Dixon Sim MD, Furnace Erector [facility]# [id number] Blood (Blood, Venous) 10/12/2023 11:56 AM EST 10/12/2023 11:57 AM EST us Regulo Lynn DO LAB BLOOD ORDERABLES Final Resu lt [facility] documented in this encounter Visit Diagnoses Diagnosis Gitelman syndrome Hypertensive disorder Hypomagnesemia Hypokalemia documented in this encounter Care Teams Ultrasonic Seaming Machine Operator Relationship Specialty Start Date End Date Aamir Martinez MD [address] [address] PCP - General 06/29/19 documented as of this encounter
--- OUTSIDE RECORDS SUMMARY | 2024-11-04 07:39 | XMS_ITS | Encounter Summary ---
Author Organization [facility] Address [address] [place] [address] Phone Care Team Providers Care Fish Net Maker Name Role Phone Aamir Martinez MD Primary Care Provider [phone] Encounter Details Date Type Department Care Team (Late st Contact Info) Description 04/12/2023 Documentation Only [facility] [address] [place] [address] Regulo Lynn DO [address] [facility] [address] [facility] [place] [address] Social History Tobacco Use Types [...] Visit [facility] [address] [place] [address] Regulo Lynn DO [address] [facility] [address] [address] [place] [address] 06/03/2025 4:00 PM EDT Office Visit [facility] [place], [address] [place] [address] Regulo Lynn, [address] [place] [address] documented as of this encounter Visit Diagnoses Not on filedocumented in this encounter Care Teams Fish Net Maker Relationship Specialty Start Date End Date Aamir Martinez MD [address] [address] PCP - General 06/29/19 documented as of this encounter
--- OUTSIDE RECORDS SUMMARY | 2024-11-04 07:39 | XMS_ITS | Continuity of Care Document ---
Author Organization [facility], Main Office Address [address] [facility] [address] [place] [address] Care Team Providers Care Change Consultant Name Role Phone AAMIR GOMEZ Primary Care Provider ESTEFANY WILKINS Sales Project Engineer COLE CHAVEZ Relationship Advisor [phone] [facility] Scraper Hand MONALISA ROSA [employer] TIFFANIE QUINTEROS Historic Preservationist Assessment No assessment recorded. Plan of Treatment Reminders Order Date Submit Date Provider Last Modified By Organization Details Last Modified Time Details Appointments PE EST 2024 02:15P M Aamir Gomez MD Not available Not available Not available Lab None recorded. Referral None recorded. Procedures None recorded. Surgeries None recorded. Imaging None recorded. Medication Orders lorazepam 0.5 mg tablet 2024 025 [id number], [address] [place], [address], 2024 15:48:08 losartan 50 mg tablet 2024 025 [facility], [address] [place], [address], 2024 15:48:10 triamcino lone acetonide 0.1 % topical cream 2024 025 [facility], [address] [place], [address], 2024 15:48:11 levothyro xine 88 mcg tablet 2024 025 [facility], [address] [facility], [place], [address], 2024 15:48:10 Patient TargetsNo targets recorded. Patient InstructionsNo instructions recorded. Reason for Referral None Reported. Problems Name Problem SNOMED Code Status Onset Date Resolution Date Notes Provider Name and Address Organization Details Recorded Time Body mass index 30+ - obesity 828722735 Completed 03/17/2020 Aamir Gomez MD [address], [place], [address] , [facility] 0 14:52:20 Abnormal vision 7675026 Completed 02/24/2017 Aamir Gomez MD [address], [place], [address] , [facility] 7 09:23:45 Rosacea 612091563 Active FRANCIA Anne, 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 4 15:35:14 Diverticul ar disease 174526922 Active 2019 Not Available [facility] 3 04:26:02 Internal hemorrhoid s 12311775 FRANCIA Chilel, [facility] 4 15:35:14 Hyperchole sterolemia 74018058 Completed 201610/24/2020 Aamir Gomez MD [address], [place], [address] , [facility] 1 15:59:47 Liver enzymes level above reference range 394551111 Active 2016 FRANCIA Anne, [facility] 4 15:35:14 Hypokalemi a 05284668 Completed 201608/29/2016 FRANCIA Anne, 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 4 15:35:14 Vitamin D deficiency 49655709 Active 2016 Not Available [facility] 3 04:26:02 Sacroiliac disorder 436996314 Completed 201603/19/2021 [facility] Aamir Gomez MD [address] [facility] [address], [place], [address] , [facility] 1 16:10:02 Environmen nadiya allergy 456310926 Active 2017 FRANCIA Anne, [facility] 4 15:35:14 Body mass index 30+ - obesity 282678776 Active 2019 FRANCIA Anne, [facility] 4 15:35:14 Venous insufficie ncy of leg 085215212 Active 2020 FRANCIA Anne, [facility] 4 15:35:14 Varicose veins of lower extremity 60363417 Active 2020 FRANCIA Anne, [facility] 4 15:35:14 Hypomagnes emia 265396854 Active 2019 Not Available [facility] 3 04:26:02 Hyperchole sterolemia 75527110 Active 2016 Not Available [facility] 3 04:26:02 Peripheral vascular disease 761404876 Active [address] [facility] 4 15:35:14 Notes:Some problems listed i n Document: #[id number] could not be added to this patient's chart. Please review this document and add these problems to the patient's chart manually as needed. Problem Notes None recorded. Procedures Surgical History Date Name Laterality Status Provider Name and Address Organization Details Recorded Time 10/25/19 24 Most Recent Mammogram completed Kelsey Navarro [facility] 11/06/2023 08:18:36 09/21/19 23 Mammogram both breasts completed Marisa Blanco MA [facility] 04/07/2023 15:30:37 02/17/20 21 Date of Last Colonoscopy completed Pinky Lopez [facility] 02/21/2021 11:38:31 02/17/20 21 Colonoscopy [address]atinder Lopez [facility] 02/21/2021 11:38:17 07/21/20 20 Mammogram Screening completed Pinky Lopez [facility] 07/24/2020 15:27:51 10/04/19 18 Date of Last Pap Smear completed Pinky Lopez [facility] 03/17/2018 09:13:36 01/26/20 16 Most Recent Bone Density completed Gosia Piper MA [facility] 02/22/2016 14:09:45 01/26/20 16 Dxa bone density study completed Gosia Piper MA [facility] 02/22/2016 14:09:45 08/25/18 88 Breast Biopsy completed Gosia Piper MA [facility] 02/22/2016 14:09:45 Laparoscopy completed Aamir Gomez MD [address] [address], [place], [address], [facility] 03/12/2019 14:48:25 Breast Biopsy completed Gosia abrams [place] [facility] 03/17/2020 14:17:51 Imaging Results None recorded. Procedure Notes None recorded. Medical Equipment None Reported. Allergies Allergen ID Allergen Name Allergen Category Reaction Reaction Severity Criticality Documentation Date Start Date Code Code System Note Provider Name and Address Organization Details Recorded Time 95613 Product containin g penicilli n (product) medicatio n hives Not available Not available 02/22/2016 [address] [facility] 6 14:09:45 45675 Substance with sulfonami de structure and antibacte rial mechanism of action (substanc e) medicatio n hives Not available Not available 02/22/[address] [facility] 6 14:09:45 63564 bacitraci n medicatio n other Not available Not available 04/04/20222020 [address] [facility] 2 14:23:12 Medications Name Sig [...] Updated DateTime 5 164.465 cm 34.2 kg/m2 32493.8 4 g 75 /min 99 % 99 % 98.4 [degF] 126 mm[Hg] 72 mm[Hg] Marisa Blanco MA [facility] 5 15:12:46 Social History Question Answer Notes LastModified by Organizat ion Details LastModified Time Tobacco Smoking Status Never Smoker FRANCIA Sunshine, 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 Yes Piotr Information not available 04/22/2024 At What Age [...] available 2020 15:26:17 Medical History Condition Response Obesity Y Kidney Disease Y Hypothyroidism Y Hypertension Y Gynecological History Statement/Question Response [...] mcg/0.3 mL dose [address] [facility] 2024 15:05:36 COVID-19, mRNA, LNP-S, PF, 30 mcg/0.3 mL dose [address] [facility] 2024 15:05:36 zoster recombinant [address] [facility] 03/19/2021 15:40:38 Tdap [address] [facility] 2024 15:05:36 Influenza, split virus, quadrivalent, PF 017 cancelled patient objection Not Available [facility] 09/11/2019 02:22:08 zoster recombinant 018 cancelled patient objection Not Available [facility] 09/11/2019 02:22:17 Pneumococcal conjugate PCV 13 018 cancelled patient objection Not Available [facility] 09/11/2019 02:21:38 pneumococcal polysaccharide PPV23 019 cancelled patient objection Not Available [facility] 09/11/2019 02:21:28 zoster recombinant 019 cancelled patient objection Not Available [facility] 09/11/2019 02:22:20 Past Encounters Encounter ID Performer Location Encounter Start Date Encounter Closed Date Diagnosis/Indication Diagnosis SNOMED-CT Code Diagnosis ICD10 Code Diagnosis Note [id number] Aamir Gomez MD Main Office [address] [place] [address] 2024 14:56:21 2024 15:51:38 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 Following with renal. Hypercholesterolemia 136 68011 E78.01 Based on current CVD risk score, statin therapy is not warranted. Will reassess. TLC advised. Hypertensive disorder 38 258033 I10 Well controlled , renal following as well. Will follow on current regimen. Hypothyroidism 48118732 E03.9 Clinically and biochemica lly euthyroid. Will continue current dose. Rosacea 467440609 L71.9 Irritable bowel syndrome 01852409 K58.0 Using PRN anxiolytic sparingly for severe IBS flares. Rx refilled. Health Concerns Section Related Observation LastModified by Organization Detai ls LastModified Time None Recorded Concern Status LastModified by Organization Details LastModified Time None Recorded Payers Encounter Date Sequence Insurance Name Policy Number Policy Pearl Covered Member ID Pearl Member ID Guarantor Name [address] [place] [address] ([facility]) [id number] Deborah Lepe Inna [id number] Deborah Keith Notes Date Note Type Note Provider Name and Address Organization Details Recorded Time 5 text/htm l Abnormal Liver TestsReported bypatient.Severity:AST:33; ALT:40; Total Bilirubin: 0.7; Alkaline Phosphatase: 124; GGT: 85 Onset/Timing:noted on routine blood work Associated Symptoms:no jaundice; no RUQ abdominal painNotes:Following with Dr. Rosa. Due for labs. States that she has had this issue for a very long time and even had biopsy done at [facility] long ago and told that she had [...] thyroid labs done Aamir Gomez MD [address] [address], [place], [address], [facility] 2024 15:50:06 OBGyn Episode No OBEpisode recorded.
--- OUTSIDE RECORDS SUMMARY | 2024-11-04 07:39 | XMS_ITS ---
Author Organization [facility] Address [address] [facility] [address] [place] [address] Care Team Providers Care Meat Scrubber Name Role Phone PATRICIA OVALLE, SARAH Primary Care Provider Nancy Serna Unavailable [phone] REASON FOR VISIT Annual SENIOR HR BUSINESS PARTNER Physical Encounters Encounter Location Date Provider Diagnosis [facility] [address] [place] [address] [address] [place] [address] 06/27/2023 Nancy Coker Plan Of Treatment Next Appt Details Provider Name:Nancy augustine, 11/05/2024 10:40:00 AM, [address] [place] [address], [facility] [address], [place], [address], Progress Notes * NYLA TIER[birth year]DOB:[birth year] (69 yo F)Acc No.[id number]:06/27/2023 PROGRESS NOTES Patient:?NIALL NYLA Appointment Provider:?Nancy augustine M.D. :1955???Age:67 Y???Sex:Female D ate:06/27/2023 Address:[address] [place], [place] [id number] Pcp:SARAH GOMEZ MD Subjective: * Chief Complaints: * ???1. Annual SENIOR HR BUSINESS PARTNER Physical. * Medical History:? Objective: * Vitals:? Assessment: Plan: * Treatment: * Images: Billing Information: * Visit Code:? * Procedure Codes:? * Electronic signature of Janette Coker MD on 11/04/2024 at 07:39 AM EDT Sign off status: Pending * Appointment Provider:?Nancy Coker M.D. Date:?06/27/2023 Generated for Angela jean-baptiste/Carl/Uriel on:?11/04/2024 07:39 AM EDT
== END 2024-11-04 07:36 | disposition home or self-care (01) ==
LOC: HO.MAMMO 07:35
PROVIDERS: PCP Pediatrics; Visit Provider Pediatrics
DX: Z12.31 Encounter for screening mammogram for malignant neoplasm of breast (principal)
CPT/HCPCS: 77063; 77067